=== PATIENT | female | born 1955 | race Hispanic/Latino ===

== ENCOUNTER 2017-12-03 14:37 | Outpatient (CLI) | payer OTHER ==
--- NOTE | 2017-12-03 15:28 | XRay Report ---
XRAY RIGHT KNEE 4 THREE VIEWS: November CLINICAL: Right knee pain. FINDINGS: Severe osteoarthritis of the medial joint with complete loss of the joint space along with large osteophytes. Widening of the lateral joint space with small lateral osteophytes. Large patellofemoral joint osteophytes. No joint effusion. No fracture or dislocation. Normal soft tissues. IMPRESSION: Severe osteoarthritis of the medial joint and the patellofemoral joint.
== END 2017-12-03 14:38 | disposition home or self-care (01) ==
LOC: SPVIMAG 14:37
PROVIDERS: ATTEND Orthopaedic Surgery Sports Medicine
DX: M17.11 Unilateral primary osteoarthritis, right knee (principal)

== ENCOUNTER 2018-04-09 06:30 | Day surgery (SDC) | payer OTHER ==
[2018-04-09] MEDS ORDERED: NACL 0.9% 1000 ML 1,000 ML ONE (06:57)
[2018-04-09] MEDS ORDERED: WATER FOR IRRIG STERILE ONE (07:09)
[2018-04-09] MEDS ORDERED: WATER FOR IRRIG STERILE IR ONE (07:09)
[2018-04-09] MEDS ORDERED: DIPRIVAN 10 MG/ML IV ONE ×2 (07:33)
[2018-04-09] MEDS ORDERED: XYLOCAINE 1% 20 mL ONE (07:34)
[2018-04-09] MEDS ORDERED: NACL 0.9% 1000 ML 1,000 ML IV SCH (09:00)
--- NOTE | 2018-04-09 09:31 | Short Stay Summary ---
Short Stay Documentation - Allergies and Medications Current Medications: Allergies oxycodone [From OxyContin] Adverse Reaction (Verified 04/09/18 06:59) Anaphylaxis Active Medications Sodium Chloride (Nacl 0.9% 1000 Ml) 1,000 mls @ 50 mls/hr IV DIRECT IVET - Brief post op/procedure progress note Date of procedure: 04/09/18 Pre-op diagnosis: 1. Diarrhea Post-op diagnosis: same (1. Colon polyp 2. Internal hemorrhoids 3. Diverticulosis 4. Normal ileocolic anastomosis) Procedure: Colonoscopy with cold biopsy polypectomy Anesthesia: MAC Findings: as above Surgeon: CARLINE BRANDON Estimated blood loss: none Pathology: list (1. Transverse colon polyp) Specimen disposition: to lab Condition: stable - Disposition Condition at discharge: Stable Disposition: DC-[id number] TO HOME OR SELFCARE Short Stay Discharge Plan Activity: no restrictions Weight Bearing Status: Full Weight Bearing Diet: regular, low salt Additional Instructions: Post Sedation D/C Instructions When you return home you may resume your regular diet unless otherwise directed. -Go directly home from the hospital and rest quietly. You may resume normal activities tomorrow. -Do NOT drive, return to work, operate any machinery or make any important personal or business decisions today. -Do NOT drink any alcohol or take nerve or sleeping drugs. They add to the effects of the medicine still present in your body. Follow up with: NOEMÍ PIERCE MD [Primary Care Provider] - 7 Days
--- NOTE | 2018-04-09 09:33 | Anesthesia Consultation ---
Anesthesia Consult and Med Hx Date of service: 04/09/18 - Airway Anesthetic Teeth Evaluation: Good ROM Head & Neck: Adequate Mental/Hyoid Distance: Adequate Mallampati Class: Class II Intubation Access Assessment: Probably Good - Pulmonary Exam CTA: Yes - Cardiac Exam Cardiac Exam: RRR - Pre-Operative Health Status ASA Pre-Surgery Classification: ASA3 Proposed Anesthetic Plan: MAC - Cardiovascular System Hx Cardia Arrhythmia: Yes (hx afib) - Endocrine Hx Non-Insulin Dependent Diabetes: Yes
--- NOTE | 2018-04-09 09:33 | Anesthesia Day of Surgery ---
Anesthesia Day of Surgery - Day of Surgery Patient Examined: Yes Patient H&P Reviewed: Yes Patient is NPO: Yes Beta Blockers: Yes
[2018-04-09 09:38] VITALS: BP 134/49
--- NOTE | 2018-04-09 09:49 | Post Anesthesia Evaluation ---
- Post Anesthesia Evaluation Patient Participated: Yes Airway Patent: Yes Stable Respiratory Function: Yes Nausea/Vomiting: No Temp > 96.8F: Yes Pain Manageable: Yes Adequeate Hydration: Yes Anesthesia Complications: No
== END 2018-04-09 06:31 | disposition home or self-care (01) ==
LOC: GIO 06:30
PROVIDERS: ATTEND Internal Medicine Gastroenterology
DX: D12.3 Benign neoplasm of transverse colon (principal); K57.30 Diverticulosis of large intestine without perforation or abscess without bleeding; K64.8 Other hemorrhoids; E11.9 Type 2 diabetes mellitus without complications; I48.91 Unspecified atrial fibrillation; Z88.5 Allergy status to narcotic agent
CPT/HCPCS: 45380; 82962; 88305; J2704; J7030

== ENCOUNTER 2021-08-07 19:40 | Inpatient (IN) | payer MEDICARE, OTHER ==
--- NOTE | 2021-08-08 01:22 | Emergency Department Report ---
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 Patient was evaluated by her primary care provider earlier today, who sent her to the emergency department for further diagnostic evaluation. Patient states her abdominal pain began along her left flank and is now diffusely located throughout her abdomen, occurring intermittently throughout the day and night. Patient is unsure if she has lost weight over the last 4 weeks. Patient's last colonoscopy was 3 years ago. Two polyps were removed. Patient has not been anticoagulated for her atrial fibrillation in several years. Denies fever, chills, nausea, vomiting, melena, rectal bleeding, urinary symptoms. Denies all other complaints at this time. - Related Data Allergies Allergy/AdvReac Type Severity Reaction Status Date / Time oxycodone [From OxyContin] AdvReac Anaphylaxis Verified 04/09/18 06:59 ED Review of Systems ROS: Stated complaint: DYHYDRATION Other details as noted in HPI Other: GENERAL: Positive for loss of appetite. ENT: Negative for ear pain, difficulty hearing, sore throat, nasal congestion, epistaxis. CARDIOVASCULAR: Negative for chest pain, palpitations, lower extremity swelling. PULMONARY: Negative for cough, dyspnea, wheezing, orthopnea, cyanosis. GASTROINTESTINAL: Positive for abdominal pain and diarrhea. MUSCULOSKELETAL: Negative for joint pain, joint swelling, myalgias, back pain, neck pain. NEUROLOGICAL: Negative for headache, seizure, syncope, paresthesias, weakness. INTEGUMENTARY: Negative for erythema, rash, diaphoresis, laceration, ecchymosis. HEMATOLOGICAL: Negative for hemoptysis, hematemesis, hematochezia, hematuria. PSYCHIATRIC: Negative for hallucinations, suicidal ideation, homicidal ideation, anxiety, depression. ED Physical Exam - General Limitations: Physical Limitation - Other Other exam information: General: Awake and alert. No acute distress. BMI > 40. Head: Atraumatic, normocephalic. Eyes: EOMI. Pupils are equal and round. Normal sclera and conjunctiva. ENT: Oral mucosa is moist. Normal pharyngeal exam. Neck: Supple. No lymphadenopathy. Pulmonary: No respiratory distress. Clear to auscultation bilaterally. Cardiac: Regular rate and rhythm. Pulses are palpable and equal bilaterally. No lower extremity cyanosis or edema. Skin: Warm and dry. No rashes. Abdomen: Soft, non-tender, non-protuberant. Patient reports diffuse abdominal discomfort without localized reproducible tenderness, guarding, rigidity, or rebound. Bowel sounds are normal. No organomegaly or masses noted. Back: Normal alignment. Left CVA tenderness. Extremities: Symmetrical. Full range of motion intact. Neurological: Alert and oriented, appropriately interactive, no focal deficits. Psych: Cooperative. Appropriate mood and affect. Speech is evenly metered. Thoughts are logically construed. ED Course Vital Signs 08/08/21 00:54 Temperature 97.9 F Pulse Rate 57 L Respiratory 18 Rate Blood Pressure 110/64 O2 Sat by Pulse 98 Oximetry ED Medical Decision Making - Lab Data Result diagrams: 08/08/21 01:28 08/08/21 01:28 - Medical Decision Making Differential diagnosis including but not limited to: diverticulitis, pancreatitis, hepatobiliary disease, bowel obstruction, bowel perforation, mesenteric ischemia, abdominal aortic aneurysm/dissection, malignancy Patient with history of multiple medical problems presents to the emergency department with complaints of progressively worsening abdominal pain and diarrhea for 1 month. Sent to emergency department by PCP from outpatient clinic today. Patient's pain began in the left flank and is now present diffusely throughout her abdomen. Labs significant for dehydration, transaminitis, and abnormal renal function. Patient states she has no known history of renal insufficiency. Given IV fluids. Initially, presentation was suspicious for mesenteric ischemia, given the patient's history of abdominal pain and loss of appetite in the setting of atrial fibrillation without anticoagulation. Imaging shows evidence of left pyelonephritis, left hydroureteronephrosis, decreased perfusion to the left kidney, and a 5 cm mass in the left kidney suspicious for renal cell carcinoma. Urinalysis shows leukocyte esterase with significant pyuria including WBC clumps. Given IV meropenem and IV vancomycin per current UpToDate guidelines. Urine culture is pending. Patient is not an appropriate candidate for outpatient management due to her underlying comorbidities in the setting of suspected renal mass with concomitant infectious process. Case discussed with Dr. Crisostomo, nib assembler, who agrees to evaluate patient on hospital admission. Case discussed with Dr. Parrish, urologist, who agrees to evaluate patient on admission. Case discussed with hospitalist, who agrees to admit. Patient expressed understanding and is agreeable to plan of care. Critical care attestation.: If time is entered above; I have spent that time in minutes in the direct care of this critically ill patient, excluding procedure time. ED Disposition Clinical Impression: Renal mass, Pyelonephritis of left kidney, Decreased renal function, Tra nsaminitis, Dehydration Disposition: ADMITTED INPATIENT Is pt being admited?: Yes Does the pt Need Aspirin: No Condition: Serious Instructions: Abdominal Pain (ED) Referrals: ALYCIA TOWNSEND PA [Primary Care Provider] - 3-5 Days Time of Disposition: 05:53
[2021-08-08 01:47] LABS: Basophils # (Auto) 0.1 K/mm3 (0.0-0.1); Basophils % (Auto) 0.5 % (0.0-1.8); Eosinophils # (Auto) 0.1 K/mm3 (0.0-0.4); Eosinophils % (Auto) 1.2 % (0.0-4.3); Hematocrit 34.2 % (30.3-42.9); Hemoglobin 11.5 gm/dl (10.1-14.3); Lymphocytes # (Auto) 1.3 K/mm3 (1.2-5.4); Lymphocytes % (Auto) 11.3 % (13.4-35.0); Mean Corpuscular HGB Conc 34 % (30-34); Mean Corpuscular Volume 88 fl (79-97); Monocytes # (Auto) 0.8 K/mm3 (0.0-0.8); Monocytes % (Auto) 7.3 % (0.0-7.3); Platelet Count 404 K/mm3 (140-440); Red Blood Count 3.91 M/mm3 (3.65-5.03); Red Cell Distribution Width 15.1 % (13.2-15.2)
[2021-08-08 01:58] LABS: INR 1.13 (0.87-1.13)
[2021-08-08 02:04] LABS: Albumin 3.4 g/dL (3.9-5); Calcium 8.9 mg/dL (8.4-10.2)
[2021-08-08] MEDS ORDERED: SODIUM CHLORIDE 0.9% 1000 ML 1,000 ML IV ONE (02:12)
[2021-08-08 02:49] LABS: Bacteria,Urine 3+ /HPF (Negative); Bilirubin,Urine NEG (Negative); Blood,Urine MOD (Negative); Color,Urine Amber (Yellow); Mucus,Urine FEW /HPF
[2021-08-08 02:50] LABS: WBC,Urine > 182.0 /HPF (0.0-6.0)
--- NOTE | 2021-08-08 05:35 | Cat Scan Report ---
CTA ABDOMEN AND PELVIS WITHOUT AND WITH IV CONTRAST INDICATION / CLINICAL INFORMATION: Pt complains of abd pain, diarrhea, hx afib, no AC -> Ischemia. TECHNIQUE: Axial CT images were obtained through the abdomen and pelvis before and after after injection of IV c ontrast. 3 plane MIP / 3D reconstructions were produced. All CT scans at this location are performed using CT dose reduction for ALARA by means of automated exposure control. COMPARISON: None available. FINDINGS: On noncontrast images there is inflammation surrounding the left kidney with mild left hydroureterone phrosis. No obstructing stone is seen. Right kidney appears normal. Mild atelectasis in the lower lyn gs. Celiac and SMA appear normal. Bilateral renal arteries appear normal with mild atherosclerotic ch trish. There is abnormal appearance of the left kidney was suggestive left renal mass. This masslike d ensity measures 5 cm. On noncontrast images this fills the ureter measures 22 abnormal postcontrast i mages 35. EVA appears normal. Postsurgical change in the bowel loops. No evidence for bowel obstruction. There may be some thickening of the distal sigmoid colon and rectum. Gallbladder appears normal. Liver is m ildly enlarged no focal inflammatory changes seen within the bowel loops. Advanced degenerative townsend es seen throughout spine IMPRESSION: 1. Abnormal appearance of left kidney with slightly decreased perfusion compared with the right. Ther e is also masslike appearance with possible 5 cm mass. Only mild enhancement of the mass is seen pardo alla findings are concerning for renal cell carcinoma. Mild inflammation surrounding the left kidney w ith mild left hydroureteronephrosis. No obstructing stone is seen. Correlation urinalysis to exclude underlying pyelonephritis as well. 2. SMA celiac and EVA are patent. . Postsurgical change in right colon. Mild thickening of the distal sigmoid colon rectum however no focal area of inflammatory change within the colon is seen. 3. Degenerative changes seen throughout spine. Signer Name: Kem Baker MD Signed: 08/08/2021 5:31 AM Workstation Name: [id number]
[2021-08-08] MEDS ORDERED: MEROPENEM/NS 1 GRAM/100 ML 1 GRAM/100 ML BAG IV ONE (05:42)
[2021-08-08] MEDS ORDERED: VANCOMYCIN 2,000 MG in SODIUM CHLORIDE 0.9% 500 ML 500 ML IV ONE (05:46)
[2021-08-08] MEDS ORDERED: SODIUM CHLORIDE 0.9% 1000 ML 1,000 ML ONE (07:01)
--- NOTE | 2021-08-08 07:38 | Consultation ---
History of Present Illness - Reason for Consult Consult date: 08/08/21 Requesting physician: CRYSTAL FORTE - History of Present Illness 65-year-old lady with a history of diabetes mellitus, atrial fibrillation on anticoagulation, diverticulosis and bowel resection for colonic mass. Patient was doing well until 4 weeks ago when she started developing abdominal pain with diarrhea with decreased appetite. Pain was initially in her left flank and then became diffuse. It is intermittent associated with occasional nausea but no vomiting. She had intermittent chills and rigors and one night woke up soaked in sweats. Her symptoms kept recurring and so patient came to the emergency room for evaluation. In the ER urinalysis showed protein 100 mg/dL, moderate blood with large leukocyte esterase, WBC 182 and bacteria 3+. CT showed left pyelonephritis with left hydroureteronephrosis with decreased perfusion to the left kidney and a 5 cm mass. Urology has been consulted to evaluate patient. I am consulted to assist managing the kidney injury. Patient still complains of the pain but she is feeling better. 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 Moved to [place] about 5 years ago after she retired). denies: smoking, alcohol abuse, prescription drug abuse, IV drug use Family history: CAD (Both parents of heart disease), other (2 sisters are a live and in good health) Medications and Allergies Allergies Allergy/AdvReac Type Severity Reaction Status Date / Time oxycodone [From OxyContin] Allergy Severe Anaphylaxis Verified 08/08/21 12:12 Home Medications Medication Instructions Recorded Confirmed Last Taken Type Atorvastatin [Lipitor] 80 mg PO QDAY 08/09/21 08/09/21 Unknown History Bupropion HCl [Wellbutrin XL] 300 mg PO QDAY 08/09/21 08/09/21 Unknown History Duloxetine HCl 60 mg PO QAM 08/09/21 08/09/21 Unknown History Metformin HCl [metFORMIN] 1,000 mg PO BID 08/09/21 08/09/21 Unknown History clonazePAM [Klonopin] 1 mg PO BID PRN 08/09/21 08/09/21 Unknown History dilTIAZem HCL [Tiadylt ER] 120 mg PO BID 08/09/21 08/09/21 Unknown History Active Meds: Active Medications Sodium Chloride (Sodium Chloride 0.9% 10 Ml Flush Syringe) 10 ml IV PRN PRN PRN Reason: LINE FLUSH Review of Systems All systems: negative (Constitutional: no fever or chills. Appetite isor weight lossO HEENT: Admits to sore th sinus drainage no hearing or vision impairment . Cardiovascular: No chest pain, shortness of breath, palpitations, lower extremity swelling or dizziness. Respiratory: No cough, sputum, shortness of breath, hemo) Gastrointestinal: other (See history of present illness), no hematemesis, no coffee ground emesis, no jaundice Genitourinary Female: flank pain, urgency, urge incontinence (Last week for couple of days) Musculoskeletal: other (Admits to joint pains and stiffness) Integumentary: no rash, no pruritis Neurological: gait dysfunction, no paralysis, no seizures, no change in speech, no confusion Psychiatric: anxiety, depression Endocrine: no cold intolerance, no heat intolerance Hematologic/Lymphatic: easy bruising Exam - Vital Signs Vital signs: Vital Signs Temp Pulse Resp BP Pulse Ox 97.9 F 57 L 18 110/64 98 08/08/21 00:54 08/08/21 00:54 08/08/21 00:54 08/08/21 00:54 08/08/21 00:54 - Physical Exam Narrative exam: Obese middle-aged female lying in bed in no acute distress HEENT: NCAT, pink oral mucous membrane Neck: Supple, no venous distention CVS: S1S2 RRR with no murmur, rub or gallop Chest: Clear to auscultation Abdomen: Protuberant, soft, nontender, no organomegaly, bowel sounds are present Extremities: No edema Genitourinary deferred Neuro: Awake, alert no focal deficits Results - Lab Results 08/09/21 05:06 08/09/21 05:06 Most recent lab results Calcium 8.9 mg/dL (8.4-10.2) 08/08/21 01:28 Magnesium 1.80 mg/dL (1.7-2.3) 08/08/21 01:28 Assessment and Plan - Patient Problems (1) Acute kidney injury Current Visit: Yes Status: Acute Plan to address problem: Acute kidney injury probably prerenal azotemia and left pyelonephritis with obstruction. Follow-up urine cultures. Continue volume repletion. Continue empiric antibiotics appropriately dosed to the degree of renal function. Urology has been consulted for relief of obstruction follow-up electrolytes and renal function. (2) Pyelonephritis of left kidney Current Visit: Yes Status: Acute Plan to address problem: Follow-up cultures. Continue empiric antibiotics. (3) Hydroureteronephrosis Current Visit: Yes Status: Acute Plan to address problem: Urology has been consulted to evaluate for possible cystoscopy and retrograde pyelogram (4) Renal mass Current Visit: Yes Status: Acute Plan to address problem: Urology evaluation (5) Diarrhea Current Visit: Yes Status: Acute Plan to address problem: Work-up and treatment by primary attending. Will need GI evaluation at some point given prior history (6) Type 2 diabetes mellitus Current Visit: Yes Status: Acute Plan to address problem: Blood sugar management by primary attending (7) Morbid obesity with BMI of 40.0-44.9, adult Current Visit: Yes Status: Acute Plan to address problem: Long-term efforts at weight loss as an outpatient
[2021-08-08] MEDS ORDERED: SODIUM CHLORIDE 0.9% 1000 ML 1,000 ML IV SCH (09:00)
--- NOTE | 2021-08-08 11:34 | History and Physical Report ---
History of Present Illness Date of examination: 08/08/21 Date of admission: 08/08/21 06:38 Chief complaint: #1 diarrhea #2 left flank pain History of present illness: 65-year-old female with a history of obesity, diabetes, atrial fibrillation, hyperlipidemia and major depression presents with a chief complaint of 1 chronic diarrhea that has progressively worsened over the past 4 weeks. Patient denies dark stool denies abdominal pain at this time. Patient states diarrhea has been common since she had a surgery in 2011 for a nonmalignant abdominal mass. Since that time she does suffer with diarrhea however now has progress until every time she eats she has a loose stool even including crackers. Patient also had additional complaint of left-sided flank pain which has been going on for approximately 3 days. Patient states she has chronic back pain which was similar to the pain that she was having therefore she was less concerned. After day 2 of back pain patient had arthralgias myalgias chills that did not respond to rest and Tylenol. Patient then went to see primary care physician who advised ER visit. Upon presentation to the ER patient had abdominal CT which showed pyelonephritis, hydronephrosis and a mass on the left kidney. Patient a lso found to have acute renal insufficiency as well. Patient admitted started on broad-spectrum antibiotics and reduction of hydronephrosis. Past History Past Medical History: atrial fib, arrhythmia, diabetes, hypertension, hyperlipidemia. denies: CAD, cancer, COPD, DVT, hypothyroidism, liver disease, migraines, PVD, pulmonary embolism, renal failure, seizures Past Surgical History: Other (Hip surgery colonoscopy approximately 3 years ago benign) Social history: , Lives alone Family history: no significant family history Medications and Allergies Allergies Allergy/AdvReac Type Severity Reaction Status Date / Time oxycodone [From OxyContin] AdvReac Anaphylaxis Verified 04/09/18 06:59 Active Meds: Active Medications Sodium Chloride (Nacl 0.9% 1000 Ml) 1,000 mls @ 75 mls/hr IV DIRECT IVET Sodium Chloride (Sodium Chloride 0.9% 10 Ml Flush Syringe) 10 ml IV PRN PRN PRN Reason: LINE FLUSH Review of Systems Constitutional: fever, chills, sweats, night sweats, anorexia, fatigue, weakness, malaise, poor appetite, other (Diarrhea as mentioned in HPI), no weight loss, no weight gain, no lethargy, no chronic headaches, no chronic pain Ears, nose, mouth and throat: no ear discharge, no decreased hearing, no nasal congestion, no nasal discharge, no dysphagia, no sore throat, no swelling in mouth, no post-nasal drip, no headache, no pain front of neck, no other Cardiovascular: no chest pain, no orthopnea, no edema, no syncope, no lightheadedness, no dyspnea on exertion, no paroxysmal nocturnal dyspnea, no high blood pressure, no leg edema, no decreased exercise tolerance Respiratory: no cough, no hemoptysis, no dyspnea on exertion, no respiratory infections, no home oxygen Gastrointestinal: nausea, diarrhea, loss of appetite, no vomiting, no constipation, no change in bowel habits, no hematemesis, no coffee ground emesis, no BRBPR, no melena, no hematochezia, no early satiety, no heartburn, no indigestion, no excessive gas, no jaundice, no dyspepsia/bloating Genitourinary Female: flank pain, no hematuria, no nocturia, no vaginal discharge, no vaginal odor, no abnormal vaginal bleeding, no vaginal dryness, no hot flashes, no prolapse symptoms, no kidney stones Musculoskeletal: low back pain, no neck stiffness, no neck pain, no shooting arm pain, no arm numbness/tingling, no shooting leg pain, no leg numbness/tingling, no redness of joints, no hot joints, no muscle weakness, no myalgias Neurological: no paralysis, no tingling, no syncope, no convulsions, no change in speech, no confusion, no sensory deficit, no double vision, no loss of vision, no spasticity, no other Psychiatric: anxiety, depression, no hypersomnia, no change in appetite, no change in libido, no suicidal ideation, no anxiety attacks Endocrine: other (Blood sugars have been well controlled. Last hemoglobin A1c was 6.3), no cold intolerance, no polydipsia, no nocturia, no excessive sweating, no deepening of the voice, no high blood sugars, no low blood sugars, no recent glucocorticoid use Hematologic/Lymphatic: no easy bleeding Allergic/Immunologic: no seasonal allergies Exam - Constitutional Vitals: Temp Pulse Resp BP Pulse Ox 97.9 F 57 L 18 110/64 98 08/08/21 00:54 08/08/21 00:54 08/08/21 00:54 08/08/21 00:54 08/08/21 00:54 General appearance: Present: no acute distress, well-nourished - EENT Eyes: Present: PERRL ENT: hearing intact, clear oral mucosa - Neck Neck: Present: supple, normal ROM - Respiratory Respiratory effort: normal Respiratory: bilateral: CTA - Cardiovascular Heart Sounds: Present: S1 & S2. Absent: rub, click - Extremities Extremities: pulses symmetrical, Full ROM Extremity abnormal: edema, other (+1 pitting edema bilaterally) Peripheral Pulses: within normal limits - Abdominal General gastrointestinal: Present: soft, non-tender, non-distended, normal bowel sounds, other (No hernia no masses appreciated does have some flank tenderness. Left side). Absent: hypoactive bowel sounds, absent bowel sounds Female genitourinary: Present: normal - Integumentary Integumentary: Present: clear, warm, dry - Musculoskeletal Musculoskeletal: gait normal, strength equal bilaterally - Psychiatric Psychiatric: appropriate mood/affect, intact judgment & insight - Neurologic Neurologic: CNII-XII intact, moves all extremities Results - Labs CBC & Chem 7: 08/08/21 01:28 08/08/21 01:28 Labs: Laboratory Last Values WBC 11.7 K/mm3 (4.5-11.0) H 08/08/21 01:28 RBC 3.91 M/mm3 (3.65-5.03) 08/08/21 01:28 Hgb 11.5 gm/dl (10.1-14.3) 08/08/21 01:28 Hct 34.2 % (30.3-42.9) 08/08/21 01:28 MCV 88 fl (79-97) 08/08/21 01:28 MCH 30 pg (28-32) 08/08/21 01:28 MCHC 34 % (30-34) 08/08/21 01:28 RDW 15.1 % (13.2-15.2) 08/08/21 01:28 Plt Count 404 K/mm3 (140-440) 08/08/21 01:28 Lymph % (Auto) 11.3 % (13.4-35.0) L 08/08/21 01:28 [place] % (Auto) 7.3 % (0.0-7.3) 08/08/21 01:28 Eos % (Auto) 1.2 % (0.0-4.3) 08/08/21 01:28 Baso % (Auto) 0.5 % (0.0-1.8) 08/08/21 01:28 Lymph # (Auto) 1.3 K/mm3 (1.2-5.4) 08/08/21 01:28 [place] # (Auto) 0.8 K/mm3 (0.0-0.8) 08/08/21 01:28 Eos # (Auto) 0.1 K/mm3 (0.0-0.4) 08/08/21 01:28 Baso # (Auto) 0.1 K/mm3 (0.0-0.1) 08/08/21 01:28 Seg Neutrophils % 79.7 % (40.0-70.0) H 08/08/21 01:28 Seg Neutrophils # 9.3 K/mm3 (1.8-7.7) H 08/08/21 01:28 PT 15.0 Sec. (12.2-14.9) H 08/08/21 01:28 INR 1.13 (0.87-1.13) 08/08/21 01:28 APTT 26.0 Sec. (24.2-36.6) 08/08/21 01:28 Sodium 134 mmol/L (137-145) L 08/08/21 01:28 Potassium 4.3 mmol/L (3.6-5.0) 08/08/21 01:28 Chloride 96.6 mmol/L (98-107) L 08/08/21 01:28 Carbon Dioxide 24 mmol/L (22-30) 08/08/21 01:28 Anion Gap 18 mmol/L 08/08/21 01:28 BUN 37 mg/dL (7-17) H 08/08/21 01:28 Creatinine 1.3 mg/dL (0.6-1.2) H 08/08/21 01:28 Estimated GFR 41 ml/min 08/08/21 01:28 BUN/Creatinine Ratio 28 % 08/08/21 01:28 Glucose 132 mg/dL (65-100) H 08/08/21 01:28 Lactic Acid 0.90 mmol/L (0.7-2.0) 08/08/21 07:07 Calcium 8.9 mg/dL (8.4-10.2) 08/08/21 01:28 Magnesium 1.80 mg/dL (1.7-2.3) 08/08/21 01:28 Total Bilirubin 0.60 mg/dL (0.1-1.2) 08/08/21 01:28 AST 58 units/L (5-40) H 08/08/21 01:28 ALT 64 units/L (7-56) H 08/08/21 01:28 Alkaline Phosphatase 174 units/L (35-129) H 08/08/21 01:28 Total Protein 6.6 g/dL (6.3-8.2) 08/08/21 01:28 Albumin 3.4 g/dL (3.9-5) L 08/08/21 01:28 Albumin/Globulin Ratio 1.1 % 08/08/21 01:28 Lipase 30 units/L (13-60) 08/08/21 01:28 Urine Color [place] (Yellow) 08/08/21 Unknown Urine Turbidity Cloudy (Clear) 08/08/21 Unknown Urine pH 5.0 (5.0-7.0) 08/08/21 Unknown Ur Specific [place] 1.016 (1.003-1.030) 08/08/21 Unknown Urine Protein 100 mg/dl mg/dL (Negative) 08/08/21 Unknown Urine Glucose (UA) Neg mg/dL (Negative) 08/08/21 Unknown Urine Ketones Neg mg/dL (Negative) 08/08/21 Unknown Urine Blood Mod (Negative) 08/08/21 Unknown Urine Nitrite Neg (Negative) 08/08/21 Unknown Urine Bilirubin Neg (Negative) 08/08/21 Unknown Urine Urobilinogen 2.0 mg/dL (<2.0) 08/08/21 Unknown Ur Leukocyte Esterase Lg (Negative) 08/08/21 Unknown Urine WBC (Auto) > 182.0 /HPF (0.0-6.0) H 08/08/21 Unknown Urine RBC (Auto) 2.0 /HPF (0.0-6.0) 08/08/21 Unknown U Epithel Cells (Auto) 7.0 /HPF (0-13.0) 08/08/21 Unknown Urine Bacteria (Auto) 3+ /HPF (Negative) 08/08/21 Unknown Urine WBC Clumps 3+ /HPF 08/08/21 Unknown Urine Mucus Few /HPF 08/08/21 Unknown - Imaging and Cardiology Chest x-ray: report reviewed, image reviewed CT scan - abdomen: report reviewed, image reviewed Assessment and Plan Advance Directives: Yes VTE prophylaxis?: Chemical Plan of care discussed with patient/family: Yes - Patient Problems (1) Acute kidney injury Current Visit: Yes Status: Acute Plan to address problem: Multifactorial secondary to prerenal azotemia with volume loss diarrhea as well as pyelonephritis. We will start aggressive IV hydration. (2) Pyelonephritis of left kidney Current Visit: Yes Status: Acute Plan to address problem: Complicated pyelonephritis. With sepsis patient has 5 mm renal mass as well as some hydronephrosis. Empiric antibiotics meropenem and vancomycin Follow blood culture data./Urine culture data IV volume hydration Supportive care with pain control Urology (3) Renal mass Current Visit: Yes Status: Acute Plan to address problem: Renal mass 5 mm suggestive of renal cell carcinoma. Urology consultation (4) Transaminitis Current Visit: Yes Status: Acute Plan to address problem: Follow transaminases most likely secondary to decreased perfusion as well. May require follow-up abdominal CT at some point. (5) Atrial fibrillation Current Visit: Yes Status: Acute Plan to address problem: Atrial fibrillation. Patient was on 2 beta-blockers. Being treated by [facility]. Patient does not know doses of beta-efrain. She is also taking Cardizem which includes 3 AV jesica blocking agents. Patient's heart rate at this point is 54. We will only add Cardizem at this time. Will obtain cardiology consult for further recommendations. Patient also has not been anticoagulated for quite some time. Patient states she is gone over this with cardiology multiple times about not being anticoagulated and they this is the best in her interest. (6) Diabetes Current Visit: Yes Status: Acute Plan to address problem: Patient on Metformin Accu-Cheks stable today. Will cover with just sliding scale insulin only at this time. Especially with acute kidney injury. (7) Hyperlipidemia LDL goal <100 Current Visit: Yes Status: Acute Plan to address problem: Goal LDL less than 100. Restart statin. (8) Morbid obesity with BMI of 40.0-44.9, adult Current Visit: Yes Status: Acute Plan to address problem: Encourage decrease carbohydrate. Increase exercise if possible. (9) Chronic diarrhea Current Visit: Yes Status: Acute Plan to address problem: Been going on for several years just worse at this point. We will treat with as needed Lomotil.
[2021-08-08] MEDS ORDERED: MORPHINE 2 MG/1 ML INJ IV PRN (11:47)
[2021-08-08] MEDS ORDERED: DEXTROSE 50% IN WATER (25GM) 50 ML SYRINGE IV PRN (11:47)
[2021-08-08] MEDS ORDERED: oxyCODONE /ACETAMINOPHEN 5-325MG TAB PO PRN (11:47)
[2021-08-08] MEDS ORDERED: ACETAMINOPHEN 325 MG TAB PO PRN (11:47)
[2021-08-08] MEDS ORDERED: ONDANSETRON 4 MG/2 ML INJ IV PRN (11:47)
[2021-08-08] MEDS ORDERED: clonazePAM 0.5 MG TAB PO PRN (12:00)
--- NOTE | 2021-08-08 12:33 | Event Note ---
Date: 08/08/21 er room 8 ( pt unavailable---I will come back)/ chart reviewed 65-year-old female with a history of obesity, diabetes, atrial fibrillation, hyperlipidemia and major depression presents with a chief complaint of 1 chronic diarrhea that has progressively worsened over the past 4 weeks. Patient denies dark stool denies abdominal pain at this time. Patient states diarrhea has been common since she had a surgery in 2011 for a nonmalignant abdominal mass. Since that time she does suffer with diarrhea however now has progress until every time she eats she has a loose stool even including crackers. Patient also had additional complaint of left-sided flank pain which has been going on for approximately 3 days. Patient states she has chronic back pain which was similar to the pain that she was having therefore she was less concerned. After day 2 of back pain patient had arthralgias myalgias chills that did not respond to rest and Tylenol. Patient then went to see primary care physician who advised ER visit. Upon presentation to the ER patient had abdominal CT which showed pyelonephritis, hydronephrosis and a 5cm mass on the left kidney. Patient also found to have acute renal insufficiency as well. Patient admitted started on broad-spectrum antibiotics and reduction of hydronephrosis. ( DDX - infected cyst, acquired cyst, tumor) will need repeat CT as outpt once infection has resolved
[2021-08-08] MEDS: dilTIAZem 30 MG TAB PO SCH ×2 (13:17→21:43)
[2021-08-08] MEDS: ENOXAPARIN 30 MG/0.3 ML INJ SUB-Q SCH (13:22)
[2021-08-08] MEDS: buPROPion SR 100 MG TAB PO SCH ×2 (13:23→21:42)
[2021-08-08] MEDS: FAMOTIDINE 20 MG/2 ML INJ IV SCH ×2 (13:23→21:42)
--- NOTE | 2021-08-08 16:32 | Consultation ---
History of Present Illness Consult date: 08/08/21 Requesting physician: BERTIN TAMAYO Consult reason: atrial fibrillation, other (3 av jesica agents) History of present illness: Patient is a 65 y/o female who follows with Dr. Mott of our practice. She has a pmhx of PAF, HTN, DM, and obesity who presented to [facility] with a complaint of progressively worsening diarrhea x 4 weeks. The patient reports she has chronic diarrhea but that for the last 4 weeks it has worsened and is associated with a decrease in appetite, fatigue, chills and general malaise. She also reports a left sided pain in her back which she attributed to chronic back pain. She reports that her symptoms had no exacerbating or relieving factors. She decided to come to the hospital after speaking with her PCP about her symptoms and reporting that they have worsened in the last [address] abdominal revealed pyelonephritis, hydronephrosis, and a left kidney mass. Cardiology has been consulted for the patients Afib. Past History Past Medical History: atrial fib, arrhythmia, diabetes, hypertension, hyperlipidemia. denies: CAD, cancer, COPD, DVT, hypothyroidism, liver disease, migraines, PVD, pulmonary embolism, renal failure, seizures Past Surgical History: Other (Hip surgery colonoscopy approximately 3 years ago benign) Social history: , Lives alone Family history: no significant family history Medications and Allergies Allergies Allergy/AdvReac Type Severity Reaction Status Date / Time oxycodone [From OxyContin] Allergy Severe Anaphylaxis Verified 08/08/21 12:12 Active Meds: Active Medications Acetaminophen (Acetaminophen 325 Mg Tab) 650 mg PO Q4H PRN PRN Reason: Pain MILD(1-3)/Fever >100.5/[place] Atenolol (Atenolol 50 Mg Tab) 50 mg PO BID IVET Atorvastatin Calcium (Atorvastatin 20 Mg Tab) 20 mg PO QHS [facility] Bupropion HCl (Bupropion Sr 100 Mg Tab) 100 mg PO BID [facility] Last Admin: 08/08/21 13:23 Dose: 100 mg Documented by: Clonazepam (Clonazepam 0.5 Mg Tab) 0.5 mg PO Q8H PRN PRN Reason: Anxiety Dextrose (Dextrose 50% In Water (25gm) 50 Ml Syringe) 50 ml IV Q30MIN PRN; Protocol PRN Reason: Hypoglycemia Diltiazem HCl (Diltiazem 30 Mg Tab) 30 mg PO Q6HR [facility] Stop: 08/08/21 18:00 Last Admin: 08/08/21 13:17 Dose: 30 mg Documented by: Diltiazem HCl (Diltiazem 30 Mg Tab) 120 mg PO BID [facility] Duloxetine HCl (Duloxetine 20 Mg Cap) 20 mg PO QDAY [facility] Enoxaparin Sodium (Enoxaparin 30 Mg/0.3 Ml Inj) 30 mg SUB-Q QDAY [facility] Last Admin: 08/08/21 13:22 Dose: 30 mg Documented by: Famotidine (Famotidine 20 Mg/2 Ml Inj) 10 mg IV BID [facility] Last Admin: 08/08/21 13:23 Dose: 10 mg Documented by: Sodium Chloride (Nacl 0.9% 1000 Ml) 1,000 mls @ 75 mls/hr IV DIRECT [facility] Insulin Human Lispro (Insulin Lispro 100 Unit/Ml) 0 unit SUB-Q ACHS [facility]; Pr otocol Lisinopril (Lisinopril 5 Mg Tab) 5 mg PO QDAY [facility] Morphine Sulfate (Morphine 2 Mg/1 Ml Inj) 2 mg IV Q4H PRN PRN Reason: Pain, Moderate (4-6) Ondansetron HCl (Ondansetron 4 Mg/2 Ml Inj) 4 mg IV Q8H PRN PRN Reason: Nausea And Vomiting Oxycodone/Acetaminophen (Oxycodone /Acetaminophen 5-325mg Tab) 1 tab PO Q6H PRN PRN Reason: Pain, Moderate (4-6) Sodium Chloride (Sodium Chloride 0.9% 10 Ml Flush Syringe) 10 ml IV PRN PRN PRN Reason: LINE FLUSH Sodium Chloride (Sodium Chloride 0.9% 10 Ml Flush Syringe) 10 ml IV BID [facility] Last Admin: 08/08/21 13:23 Dose: 10 ml Documented by: Sotalol HCl (Sotalol 80 Mg Tab) 180 mg PO Q12HR [facility] Review of Systems All systems: negative Constitutional: fever, chills, fatigue, poor appetite, no weight loss, no weight gain Ears, nose, mouth and throat: no ear discharge, no tinnitis, no decreased hearing, no nose pain Cardiovascular: no orthopnea, no palpitations Respiratory: no cough, no cough with sputum, no excessive sputum, no shortness of breath, no dyspnea on exertion Gastrointestinal: nausea, vomiting, diarrhea Genitourinary Female: flank pain Musculoskeletal: low back pain Integumentary: no rash, no pruritis, no redness, no sores Neurological: no transient paralysis, no paralysis, no weakness, no parathesias Psychiatric: no anxiety, no memory loss Endocrine: no cold intolerance, no heat intolerance Hematologic/Lymphatic: no easy bruising, no easy bleeding Physical Examination Last Vital Signs Temp 97.9 F 08/08/21 00:54 Pulse 46 L 08/08/21 15:00 Resp 28 H 08/08/21 15:00 BP 135/58 08/08/21 15:00 Pulse Ox 93 08/08/21 15:00 General appearance: no acute distress HEENT: Positive: PERRL Neck: Positive: trachea midline Cardiac: Positive: irregularly irregular Lungs: Positive: Normal Breath Sounds Neuro: Positive: Grossly Intact Abdomen: Positive: Soft, Active Bowel Sounds Skin: Negative: Rash, Suspicious Lesions, Ulceration Extremities: Present: upper extr. pulses, lower extr. pulses. Absent: edema Results 08/08/21 01:28 08/08/21 01:28 Cardiac Enzymes 08/08/21 Range/Units 01:28 AST 58 H (5-40) units/L Coagulation 08/08/21 Range/Units 01:28 PT 15.0 H (12.2-14.9) Sec. INR 1.13 (0.87-1.13) APTT 26.0 (24.2-36.6) Sec. CBC 08/08/21 Range/Units 01:28 WBC 11.7 H (4.5-11.0) K/mm3 RBC 3.91 (3.65-5.03) M/mm3 Hgb 11.5 (10.1-14.3) gm/dl Hct 34.2 (30.3-42.9) % Plt Count 404 (140-440) K/mm3 Lymph # (Auto) 1.3 (1.2-5.4) K/mm3 [place] # (Auto) 0.8 (0.0-0.8) K/mm3 Eos # (Auto) 0.1 (0.0-0.4) K/mm3 Baso # (Auto) 0.1 (0.0-0.1) K/mm3 Comprehensive Metabolic Panel 08/08/21 Range/Units 01:28 Sodium 134 L (137-145) mmol/L Potassium 4.3 (3.6-5.0) mmol/L Chloride 96.6 L (98-107) mmol/L Carbon Dioxide 24 (22-30) mmol/L BUN 37 H (7-17) mg/dL Creatinine 1.3 H (0.6-1.2) mg/dL Glucose 132 H (65-100) mg/dL Calcium 8.9 (8.4-10.2) mg/dL AST 58 H (5-40) units/L ALT 64 H (7-56) units/L Alkaline Phosphatase 174 H (35-129) units/L Total Protein 6.6 (6.3-8.2) g/dL Albumin 3.4 L (3.9-5) g/dL - Imaging and Cardiology Echo: report reviewed EKG: pending Assessment and Plan Afib (rate controlled) * Patient has known history of AFib. EKG pending * Patient home medications are sotalol 180mg PO BID, atenolol 50mg PO BID, and Diltiazem 120mg PO BID. She has been on these medications for many years. Will resume meds * Previous EKGs and documentation show patient HR trend mid 50s-60s. Patient has no cardiac complaints * Patient is not on anticoagulation as an outpatient. Will continue to hold anti coagulation * Echo 05/16/2020- The estimated LV ejection fraction is normal at 55-60%. LV chamber size is normal. There is a sigmoid septum measuring 1.6 cm. Normal left atrial pressure and diastolic function. There is normal right ventricular size, wall dimension, and systolic function. The LA volume is mildly increased. Right Atrium chamber is mildly dilated. The ascending aorta is mildly dilated Pyelonephritis Hydroneprhosis Kidney Mass * Nephrology Consulted * Urology Consulted Resume home meds. EKG pending Patient seen in conjunction with Dr. Cool who agrees with this plan of care. Will continue to follow - Patient Problems (1) Acute kidney injury Current Visit: Yes Status: Acute (2) Atrial fibrillation Current Visit: Yes Status: Acute (3) Chronic diarrhea Current Visit: Yes Status: Acute (4) Hyperlipidemia LDL goal <100 Current Visit: Yes Status: Acute (5) Morbid obesity with BMI of 40.0-44.9, adult Current Visit: Yes Status: Acute (6) Pyelonephritis of left kidney Current Visit: Yes Status: Acute (7) Renal mass Current Visit: Yes Status: Acute
--- NOTE | 2021-08-08 17:46 | Consultation ---
History of Present Illness - Reason for Consult Consult date: 08/08/21 - History of Present Illness er room 8 chart reviewed 65-year-old female with a history of obesity, diabetes, atrial fibrillation, hyperlipidemia and major depression presents with a chief complaint of 1 chronic diarrhea that has progressively worsened over the past 4 weeks. Patient denies dark stool denies abdominal pain at this time. Patient states diarrhea has been common since she had a surgery in 2011 for a nonmalignant abdominal mass. Since that time she does suffer with diarrhea however now has progress until every time she eats she has a loose stool even including crackers. Patient also had additional complaint of left-sided flank pain which has been going on for approximately 3 days. Patient states she has chronic back pain which was similar to the pain that she was having therefore she was less concerned. After day 2 of back pain patient had arthralgias myalgias chills that did not respond to rest and Tylenol. Patient then went to see primary care physician who advised ER visit. Upon presentation to the ER patient had abdominal CT which showed pyelonephritis, hydronephrosis and a 5cm mass on the left kidney. Patient also found to have acute renal insufficiency as well. Patient admitted started on broad-spectrum antibiotics and reduction of hydronephrosis. abd soft A/P UTI left renal mass ( DDX - infected cyst, acquired cyst, tumor) CARDS note reviewed will need repeat CT as outpt once infection has resolved my card given & written info office appt in 1-2 wks Past History Past Medical History: atrial fib, arrhythmia, diabetes, hypertension, hyperlipidemia. denies: CAD, cancer, COPD, DVT, hypothyroidism, liver disease, migraines, PVD, pulmonary embolism, renal failure, seizures Past Surgical History: Other (Hip surgery colonoscopy approximately 3 years ago benign) Social history: , Lives alone Family history: no significant family history Medications and Allergies Allergies Allergy/AdvReac Type Severity Reaction Status Date / Time oxycodone [From OxyContin] Allergy Severe Anaphylaxis Verified 08/08/21 12:12 Active Meds: Active Medications Acetaminophen (Acetaminophen 325 Mg Tab) 650 mg PO Q4H PRN PRN Reason: Pain MILD(1-3)/Fever >100.5/BENSON Atenolol (Atenolol 50 Mg Tab) 50 mg PO BID IVET Atorvastatin Calcium (Atorvastatin 20 Mg Tab) 20 mg PO QHS IVET Bupropion HCl (Bupropion Sr 100 Mg Tab) 100 mg PO BID [facility] Last Admin: 08/08/21 13:23 Dose: 100 mg Documented by: Clonazepam (Clonazepam 0.5 Mg Tab) 0.5 mg PO Q8H PRN PRN Reason: Anxiety Dextrose (Dextrose 50% In Water (25gm) 50 Ml Syringe) 50 ml IV Q30MIN PRN; Protocol PRN Reason: Hypoglycemia Diltiazem HCl (Diltiazem 30 Mg Tab) 30 mg PO Q6HR [facility] Stop: 08/08/21 18:00 Last Admin: 08/08/21 13:17 Dose: 30 mg Documented by: Diltiazem HCl (Diltiazem 60 Mg Tab) 120 mg PO BID [facility] Duloxetine HCl (Duloxetine 20 Mg Cap) 20 mg PO QDAY [facility] Enoxaparin Sodium (Enoxaparin 30 Mg/0.3 Ml Inj) 30 mg SUB-Q QDAY [facility] Last Admin: 08/08/21 13:22 Dose: 30 mg Documented by: Famotidine (Famotidine 20 Mg/2 Ml Inj) 10 mg IV BID [facility] Last Admin: 08/08/21 13:23 Dose: 10 mg Documented by: Sodium Chloride (Nacl 0.9% 1000 Ml) 1,000 mls @ 75 mls/hr IV DIRECT [facility] Insulin Human Lispro (Insulin Lispro 100 Unit/Ml) 0 unit SUB-Q ACHS [facility]; Protocol Lisinopril (Lisinopril 5 Mg Tab) 5 mg PO QDAY [facility] Morphine Sulfate (Morphine 2 Mg/1 Ml Inj) 2 mg IV Q4H PRN PRN Reason: Pain, Moderate (4-6) Ondansetron HCl (Ondansetron 4 Mg/2 Ml Inj) 4 mg IV Q8H PRN PRN Reason: Nausea And Vomiting Oxycodone/Acetaminophen (Oxycodone /Acetaminophen 5-325mg Tab) 1 tab PO Q6H PRN PRN Reason: Pain, Moderate (4-6) Sodium Chloride (Sodium Chloride 0.9% 10 Ml Flush Syringe) 10 ml IV PRN PRN PRN Reason: LINE FLUSH Sodium Chloride (Sodium Chloride 0.9% 10 Ml Flush Syringe) 10 ml IV BID [facility] Last Admin: 08/08/21 13:23 Dose: 10 ml Documented by: Sotalol HCl (Sotalol 80 Mg Tab) 180 mg PO Q12HR IVET Last Admin: 08/08/21 16:43 Dose: Not Given Documented by: Exam - Constitutional Vitals: Temp Pulse Resp BP Pulse Ox 97.9 F 46 L 25 H 137/69 96 08/08/21 00:54 08/08/21 16:00 08/08/21 16:00 08/08/21 16:00 08/08/21 16:00 Results - Labs CBC & Chem 7: 08/08/21 01:28 08/08/21 01:28 Labs: Abnormal lab results 08/08/21 08/08/21 08/08/21 Range/Units 01:28 01:28 01:28 WBC 11.7 H (4.5-11.0) K/mm3 Lymph % (Auto) 11.3 L (13.4-35.0) % Seg Neutrophils % 79.7 H (40.0-70.0) % Seg Neutrophils # 9.3 H (1.8-7.7) K/mm3 PT 15.0 H (12.2-14.9) Sec. Sodium 134 L (137-145) mmol/L Chloride 96.6 L (98-107) mmol/L BUN 37 H (7-17) mg/dL Creatinine 1.3 H (0.6-1.2) mg/dL Glucose 132 H (65-100) mg/dL POC Glucose (70-105) mg/dL AST 58 H (5-40) units/L ALT 64 H (7-56) units/L Alkaline Phosphatase 174 H (35-129) units/L Albumin 3.4 L (3.9-5) g/dL Urine WBC (Auto) (0.0-6.0) /HPF 08/08/21 08/08/21 Range/Units 16:56 Unknown WBC (4.5-11.0) K/mm3 Lymph % (Auto) (13.4-35.0) % Seg Neutrophils % (40.0-70.0) % Seg Neutrophils # (1.8-7.7) K/mm3 PT (12.2-14.9) Sec. Sodium (137-145) mmol/L Chloride (98-107) mmol/L BUN (7-17) mg/dL Creatinine (0.6-1.2) mg/dL Glucose (65-100) mg/dL POC Glucose 144 H (70-105) mg/dL AST (5-40) units/L ALT (7-56) units/L Alkaline Phosphatase (35-129) units/L Albumin (3.9-5) g/dL Urine WBC (Auto) > 182.0 H (0.0-6.0) /HPF
[2021-08-08] MEDS ORDERED: DIPHENOXYLATE/ATROPINE TAB PO PRN (17:57)
[2021-08-08] MEDS: INSULIN LISPRO 100 UNIT/ML SUB-Q SCH ×2 (21:43→22:02)
[2021-08-08] MEDS: atenoloL 50 MG TAB PO SCH (22:01)
[2021-08-09 03:39] LABS: Creatinine,Urine 118.2 mg/dL (0.1-20.0)
[2021-08-09 06:19] LABS: Basophils % (Auto) 0.4 % (0.0-1.8); Eosinophils # (Auto) 0.1 K/mm3 (0.0-0.4); Eosinophils % (Auto) 0.9 % (0.0-4.3); Hematocrit 31.8 % (30.3-42.9); Hemoglobin 10.5 gm/dl (10.1-14.3); Lymphocytes # (Auto) 1.3 K/mm3 (1.2-5.4); Lymphocytes % (Auto) 11.9 % (13.4-35.0); Mean Corpuscular HGB Conc 33 % (30-34); Mean Corpuscular Volume 88 fl (79-97); Monocytes # (Auto) 0.8 K/mm3 (0.0-0.8); Monocytes % (Auto) 7.2 % (0.0-7.3); Platelet Count 321 K/mm3 (140-440); Red Blood Count 3.62 M/mm3 (3.65-5.03); Red Cell Distribution Width 15.3 % (13.2-15.2)
[2021-08-09 06:30] LABS: Albumin 2.9 g/dL (3.9-5); Calcium 9.2 mg/dL (8.4-10.2)
[2021-08-09] MEDS: INSULIN LISPRO 100 UNIT/ML SUB-Q SCH ×4 (08:35→22:19)
--- NOTE | 2021-08-09 08:46 | Progress Note ---
Assessment and Plan - Patient Problems (1) Acute kidney injury Current Visit: Yes Status: Acute (2) Pyelonephritis of left kidney Current Visit: Yes Status: Acute (3) Renal mass Current Visit: Yes Status: Acute (4) Transaminitis Current Visit: Yes Status: Acute (5) Atrial fibrillation Current Visit: Yes Status: Acute (6) Diabetes Current Visit: Yes Status: Acute (7) Hyperlipidemia LDL goal <100 Current Visit: Yes Status: Acute (8) Morbid obesity with BMI of 40.0-44.9, adult Current Visit: Yes Status: Acute (9) Chronic diarrhea Current Visit: Yes Status: Acute Subjective Date of service: 08/09/21 Principal diagnosis: 1. Pyelonephritis #2 acute kidney injury #3 atrial fibrillation Objective - Constitutional Vitals: Vital Signs - 12hr 08/08/21 08/08/21 08/08/21 20:50 21:00 21:10 Temperature Pulse Rate 53 L 53 L 53 L Respiratory 26 H 21 27 H Rate Blood Pressure 133/52 122/63 122/63 O2 Sat by Pulse 95 93 95 Oximetry 08/08/21 08/08/21 08/08/21 21:20 21:30 21:40 Temperature Pulse Rate 56 L 57 L 55 L Respiratory 10 L 13 16 Rate Blood Pressure 122/63 158/83 158/83 O2 Sat by Pulse 95 90 96 Oximetry 08/08/21 08/08/21 08/08/21 21:43 21:50 22:00 Temperature Pulse Rate 56 L 56 L 54 L Respiratory 15 8 L Rate Blood Pressure 122/63 158/83 138/68 O2 Sat by Pulse 96 98 Oximetry 08/08/21 08/08/21 08/08/21 22:01 22:10 22:20 Temperature Pulse Rate 56 L 55 L 55 L Respiratory 31 H 17 Rate Blood Pressure 122/63 138/68 158/83 O2 Sat by Pulse 94 96 Oximetry 08/08/21 08/08/21 08/08/21 22:29 22:30 22:40 Temperature Pulse Rate 51 L 55 L Respiratory 31 H 29 H Rate Blood Pressure 141/69 141/69 O2 Sat by Pulse 94 98 96 Oximetry 08/08/21 08/08/21 08/08/21 22:50 23:00 23:10 Temperature Pulse Rate 58 L 56 L 54 L Respiratory 28 H 29 H 30 H Rate Blood Pressure 141/69 147/67 147/67 O2 Sat by Pulse 98 95 95 Oximetry 08/08/21 08/08/21 08/08/21 23:20 23:30 23:40 Temperature Pulse Rate 55 L 61 65 Respiratory 21 13 12 Rate Blood Pressure 147/67 159/81 159/81 O2 Sat by Pulse 96 96 95 Oximetry 08/08/21 08/09/21 08/09/21 23:50 00:00 00:10 Temperature Pulse Rate 60 57 L Respiratory 14 15 21 Rate Blood Pressure 159/81 136/117 136/117 O2 Sat by Pulse 96 96 94 Oximetry 08/09/21 08/09/21 08/09/21 00:20 00:30 00:40 Temperature Pulse Rate 55 L 53 L 53 L Respiratory 30 H 28 H 27 H Rate Blood Pressure 136/117 136/117 136/117 O2 Sat by Pulse 95 94 95 Oximetry 08/09/21 08/09/21 08/09/21 00:50 01:00 01:10 Temperature Pulse Rate 53 L 53 L 52 L Respiratory 29 H 27 H 28 H Rate Blood Pressure 136/117 136/117 136/117 O2 Sat by Pulse 94 94 94 Oximetry 08/09/21 08/09/21 08/09/21 01:20 01:30 01:40 Temperature Pulse Rate 51 L 52 L 52 L Respiratory 27 H 28 H 29 H Rate Blood Pressure 136/117 197/71 197/71 O2 Sat by Pulse 94 92 93 Oximetry 08/09/21 08/09/21 08/09/21 01:50 02:00 02:10 Temperature Pulse Rate 51 L 55 L Respiratory 22 14 16 Rate Blood Pressure 197/71 217/58 217/58 O2 Sat by Pulse 93 97 96 Oximetry 08/09/21 08/09/21 08/09/21 02:20 02:24 02:30 Temperature Pulse Rate 54 L 54 L Respiratory 20 16 27 H Rate Blood Pressure 217/58 140/67 O2 Sat by Pulse 97 95 96 Oximetry 08/09/21 08/09/21 08/09/21 02:40 02:50 03:00 Temperature Pulse Rate 53 L 55 L 101 H Respiratory 19 25 H 14 Rate Blood Pressure 140/67 140/67 117/73 O2 Sat by Pulse 91 96 95 Oximetry 08/09/21 04:58 Temperature 97.6 F Pulse Rate 53 L Respiratory 20 Rate Blood Pressure 126/49 O2 Sat by Pulse 97 Oximetry - Labs CBC & Chem 7: 08/09/21 05:06 08/09/21 05:06 Labs: Abnormal lab results 08/08/21 08/08/21 08/09/21 Range/Units 16:56 22:00 03:01 WBC (4.5-11.0) K/mm3 RBC (3.65-5.03) M/mm3 RDW (13.2-15.2) % Lymph % (Auto) (13.4-35.0) % Seg Neutrophils % (40.0-70.0) % Seg Neutrophils # (1.8-7.7) K/mm3 Sodium (137-145) mmol/L BUN (7-17) mg/dL Glucose (65-100) mg/dL POC Glucose 144 H 125 H (70-105) mg/dL Alkaline Phosphatase (35-129) units/L Albumin (3.9-5) g/dL Urine Creatinine 118.2 H (0.1-20.0) mg/dL Urine Total Protein 33 H (5-11.8) mg/dL 08/09/21 08/09/21 08/09/21 Range/Units 05:06 05:06 07:58 WBC 11.2 H (4.5-11.0) K/mm3 RBC 3.62 L (3.65-5.03) M/mm3 RDW 15.3 H (13.2-15.2) % Lymph % (Auto) 11.9 L (13.4-35.0) % Seg Neutrophils % 79.6 H (40.0-70.0) % Seg Neutrophils # 8.9 H (1.8-7.7) K/mm3 Sodium 136 L (137-145) mmol/L BUN 35 H (7-17) mg/dL Glucose 134 H (65-100) mg/dL POC Glucose 109 H (70-105) mg/dL Alkaline Phosphatase 139 H (35-129) units/L Albumin 2.9 L (3.9-5) g/dL Urine Creatinine (0.1-20.0) mg/dL Urine Total Protein (5-11.8) mg/dL
[2021-08-09] MEDS ORDERED: atenoloL 50 MG TAB PO SCH (10:00)
--- NOTE | 2021-08-09 10:13 | Electrocardiograph Report ---
[facility] Test Date: 2021-08-09 Test Time: 07:54:21 Pat Name: MEDARDO VAZQUEZ Department: Room: A478 1 Gender: F Chairman: ROLO : 1955 Requested By: ANGELA WALLER Order Number: [id number] Reading MD: Nereida Jones Measurements Intervals [place] Rate: 52 P: 0 CA: 84 QRS: 2 QRSD: 126 T: 26 QT: 566 QTc: 528 Interpretive Statements Sinus bradycardia with first-degree AV block Nonspecific T wave changes Prolonged QT interval No previous ECG available for comparison Electronically Signed On 08-09-2021 10:12:55 EDT by Nereida Jones
[2021-08-09] MEDS: FAMOTIDINE 20 MG/2 ML INJ IV SCH ×2 (10:50→22:16)
[2021-08-09] MEDS: dilTIAZem 60 MG TAB PO SCH ×2 (10:52→22:15)
[2021-08-09] MEDS: LISINOPRIL 5 MG TAB PO SCH (10:54)
[2021-08-09] MEDS: cefTRIAXone/NS 2 GM/100 ML 2 GM/100 ML BAG IV SCH (11:32)
--- NOTE | 2021-08-09 11:42 | Progress Note ---
Assessment and Plan Afib (rate controlled) * Patient has known history of AFib. * EKG shows sinus 55 with 1st degree AV block. No acute ischemic changes. * Patient home medications are sotalol 180mg PO BID, atenolol 50mg PO BID, and Diltiazem 120mg PO BID. She has been on these medications for many years. Will resume meds * Previous EKGs and documentation show patient HR trend mid 50s-60s. Patient has no cardiac complaints * Patient is not on anticoagulation as an outpatient. Will continue to hold anticoagulation * Echo 05/16/2020- The estimated LV ejection fraction is normal at 55-60%. LV chamber size is normal. There is a sigmoid septum measuring 1.6 cm. Normal left atrial pressure and diastolic function. There is normal right ventricular size, wall dimension, and systolic function. The LA volume is mildly increased. Right Atrium chamber is mildly dilated. The ascending aorta is mildly dilated Pyelonephritis Hydroneprhosis Kidney Mass * Nephrology following * Urology following Continue home meds. EKG with no significant changes form previous EKGs Patient is stable from a cardiac perspective. Will see as needed Patient seen in conjunction with Dr. Cool who agrees with this plan of care. - Patient Problems (1) Acute kidney injury Current Visit: Yes Status: Acute (2) Atrial fibrillation Current Visit: Yes Status: Acute (3) Chronic diarrhea Current Visit: Yes Status: Acute (4) Hyperlipidemia LDL goal <100 Current Visit: Yes Status: Acute (5) Morbid obesity with BMI of 40.0-44.9, adult Current Visit: Yes Status: Acute (6) Pyelonephritis of left kidney Current Visit: Yes Status: Acute (7) Renal mass Current Visit: Yes Status: Acute Subjective Date of service: 08/09/21 Principal diagnosis: 1. Pyelonephritis #2 acute kidney injury #3 atrial fibrillation Interval history: Patient sitting in bed. reports feeling better. Has no cardiac complaints Sinus 55 with 1st degree block on monitor Objective Last Vital Signs Temp 97.9 F 08/09/21 07:30 Pulse 57 L 08/09/21 10:54 Resp 20 08/09/21 07:30 BP 128/62 08/09/21 10:54 Pulse Ox 95 08/09/21 07:30 - Physical Examination General: Appears Well HEENT: Positive: PERRL Neck: Positive: trachea midline Cardiac: Positive: Regular Rate, Bradycardia Lungs: Positive: Normal Breath Sounds Neuro: Positive: Grossly Intact Abdomen: Positive: Soft, Active Bowel Sounds Skin: Negative: Rash, Suspicious Lesions, Ulceration Extremities: Present: upper extr. pulses, lower extr. pulses. Absent: edema - Labs and Meds Cardiac Enzymes 08/09/21 Range/Units 05:06 AST 36 (5-40) units/L CBC 08/09/21 Range/Units 05:06 WBC 11.2 H (4.5-11.0) K/mm3 RBC 3.62 L (3.65-5.03) M/mm3 Hgb 10.5 (10.1-14.3) gm/dl Hct 31.8 (30.3-42.9) % Plt Count 321 (140-440) K/mm3 Lymph # (Auto) 1.3 (1.2-5.4) K/mm3 [place] # (Auto) 0.8 (0.0-0.8) K/mm3 Eos # (Auto) 0.1 (0.0-0.4) K/mm3 Baso # (Auto) 0.0 (0.0-0.1) K/mm3 Comprehensive Metabolic Panel 08/09/21 Range/Units 05:06 Sodium 136 L (137-145) mmol/L Potassium 3.6 (3.6-5.0) mmol/L Chloride 100.4 (98-107) mmol/L Carbon Dioxide 22 (22-30) mmol/L BUN 35 H (7-17) mg/dL Creatinine 1.2 (0.6-1.2) mg/dL Glucose 134 H (65-100) mg/dL Calcium 9.2 (8.4-10.2) mg/dL AST 36 (5-40) units/L ALT 46 (7-56) units/L Alkaline Phosphatase 139 H (35-129) units/L Total Protein 6.8 (6.3-8.2) g/dL Albumin 2.9 L (3.9-5) g/dL - Imaging and Cardiology EKG: pending, report reviewed, image reviewed Echo: report reviewed - Telemetry EKG Rhythm: Sinus Rhythm - EKG Sinus rhythms and dysrhythmias: sinus rhythm AV and intraventricular conduction: 1 AV block
--- NOTE | 2021-08-09 12:13 | Progress Note ---
Assessment and Plan - Patient Problems (1) Acute kidney injury Current Visit: Yes Status: Acute Plan to address problem: Acute kidney injury probably prerenal azotemia and left pyelonephritis with obstruction. Follow-up urine cultures. Continue volume repletion. Continue empiric antibiotics appropriately dosed to the degree of renal function. Uro logy input appreciated. Follow-up electrolytes and renal function. (2) Pyelonephritis of left kidney Current Visit: Yes Status: Acute Plan to address problem: Follow-up cultures. Continue empiric antibiotics. (3) Hydroureteronephrosis Current Visit: Yes Status: Acute Plan to address problem: Urology has been consulted to evaluate for possible cystoscopy and retrograde pyelogram. Follow-up kidney ultrasound in the morning (4) Renal mass Current Visit: Yes Status: Acute Plan to address problem: Urology evaluation -follow-up CT scan as an outpatient (5) Diarrhea Current Visit: Yes Status: Acute Plan to address problem: Work-up and treatment by primary attending. Will need GI evaluation at some point given prior history (6) Type 2 diabetes mellitus Current Visit: Yes Status: Acute Plan to address problem: Blood sugar management by primary attending (7) Morbid obesity with BMI of 40.0-44.9, adult Current Visit: Yes Status: Acute Plan to address problem: Long-term efforts at weight loss as an outpatient Subjective Date of service: 08/09/21 Principal diagnosis: 1. Pyelonephritis #2 acute kidney injury #3 atrial fibrillation Interval history: Patient seen lying in bed. She has no complaints today. Pain is resolving. No nausea or vomiting. Had diarrhea yesterday several times after breakfast. Was afraid to eat lunch or dinner. Has had breakfast this morning. No bowel movements yet. Objective - Exam Narrative Exam: Obese middle-aged female lying in bed in no acute distress HEENT: NCAT, pink oral mucous membrane Neck: Supple, no venous distention CVS: S1S2 RRR with no murmur, rub or gallop Chest: Clear to auscultation Abdomen: Protuberant, soft, nontender, no organomegaly, bowel sounds are present Extremities: No edema Genitourinary deferred Neuro: Awake, alert no focal deficits - Vital Signs Vital signs: Vital Signs - 12hr 08/09/21 08/09/21 08/09/21 00:20 00:30 00:40 Temperature Pulse Rate 55 L 53 L 53 L Respiratory 30 H 28 H 27 H Rate Blood Pressure 136/117 136/117 136/117 Blood Pressure [Right] O2 Sat by Pulse 95 94 95 Oximetry 08/09/21 08/09/21 08/09/21 00:50 01:00 01:10 Temperature Pulse Rate 53 L 53 L 52 L Respiratory 29 H 27 H 28 H Rate Blood Pressure 136/117 136/117 136/117 Blood Pressure [Right] O2 Sat by Pulse 94 94 94 Oximetry 08/09/21 08/09/21 08/09/21 01:20 01:30 01:40 Temperature Pulse Rate 51 L 52 L 52 L Respiratory 27 H 28 H 29 H Rate Blood Pressure 136/117 197/71 197/71 Blood Pressure [Right] O2 Sat by Pulse 94 92 93 Oximetry 08/09/21 08/09/21 08/09/21 01:50 02:00 02:10 Temperature Pulse Rate 51 L 55 L Respiratory 22 14 16 Rate Blood Pressure 197/71 217/58 217/58 Blood Pressure [Right] O2 Sat by Pulse 93 97 96 Oximetry 08/09/21 08/09/21 08/09/21 02:20 02:24 02:30 Temperature Pulse Rate 54 L 54 L Respiratory 20 16 27 H Rate Blood Pressure 217/58 140/67 Blood Pressure [Right] O2 Sat by Pulse 97 95 96 Oximetry 08/09/21 08/09/21 08/09/21 02:40 02:50 03:00 Temperature Pulse Rate 53 L 55 L 101 H Respiratory 19 25 H 14 Rate Blood Pressure 140/67 140/67 117/73 Blood Pressure [Right] O2 Sat by Pulse 91 96 95 Oximetry 08/09/21 08/09/21 08/09/21 04:58 07:30 10:52 Temperature 97.6 F 97.9 F Pulse Rate 53 L 57 L 57 L Respiratory 20 20 Rate Blood Pressure 126/49 128/62 Blood Pressure 128/62 [Right] O2 Sat by Pulse 97 95 Oximetry 08/09/21 08/09/21 08/09/21 10:54 11:41 11:42 Temperature Pulse Rate 57 L 60 Respiratory Rate Blood Pressure 128/62 117/48 Blood Pressure [Right] O2 Sat by Pulse 96 Oximetry - Lab 08/09/21 05:06 08/09/21 05:06 Most recent lab results Calcium 9.2 mg/dL (8.4-10.2) 08/09/21 05:06 Phosphorus 3.40 mg/dL (2.5-4.5) 08/09/21 05:06 Magnesium 1.80 mg/dL (1.7-2.3) 08/08/21 01:28 Urine Creatinine 118.2 mg/dL (0.1-20.0) H 08/09/21 03:01 Urine Total Protein 33 mg/dL (5-11.8) H 08/09/21 03:01 Medications & Allergies - Medications Allergies/Adverse Reactions: Allergies oxycodone [From OxyContin] Allergy (Severe, Verified 08/08/21 12:12) Anaphylaxis Home Medications: Home Medications Medication Instructions Recorded Confirmed Last Taken Type Atorvastatin [Lipitor] 80 mg PO QDAY 08/09/21 08/09/21 Unknown History Bupropion HCl [Wellbutrin XL] 300 mg PO QDAY 08/09/21 08/09/21 Unknown History Duloxetine HCl 60 mg PO QAM 08/09/21 08/09/21 Unknown History Metformin HCl [metFORMIN] 1,000 mg PO BID 08/09/21 08/09/21 Unknown History clonazePAM [Klonopin] 1 mg PO BID PRN 08/09/21 08/09/21 Unknown History dilTIAZem HCL [Tiadylt ER] 120 mg PO BID 08/09/21 08/09/21 Unknown History Active Medications: Generic Name Dose Route Start Last Admin Trade Name Freq PRN Reason Stop Dose Admin Acetaminophen 650 mg 08/08/21 11:47 Acetaminophen 325 Mg Tab PO Q4H PRN Pain MILD(1-3)/Fever >100.5/BENSON Atenolol 50 mg 08/08/21 22:00 08/08/21 22:01 Atenolol 50 Mg Tab PO Not Given BID IVET Atorvastatin Calcium 20 mg 08/08/21 22:00 08/08/21 21:42 Atorvastatin 20 Mg Tab PO 20 mg QHS IVET Administration Bupropion HCl 100 mg 08/08/21 13:00 08/08/21 21:42 Bupropion Sr 100 Mg Tab PO 100 mg BID IVET Administration Clonazepam 0.5 mg 08/08/21 12:00 Clonazepam 0.5 Mg Tab PO Q8H PRN Anxiety Dextrose 50 ml 08/08/21 11:47 Dextrose 50% In Water (25gm) 50 Ml Syringe IV Q30MIN PRN Hypoglycemia Protocol Diltiazem HCl 120 mg 08/09/21 10:00 08/09/21 10:52 Diltiazem 60 Mg Tab PO 120 mg BID IVET Administration Diphenoxylate HCl/Atropine 1 tab 08/08/21 17:57 08/09/21 05:11 Diphenoxylate/Atropine Tab PO 1 tab Q6H PRN Administration Diarrhea Duloxetine HCl 20 mg 08/09/21 10:00 Duloxetine 20 Mg Cap PO QDAY IVET Enoxaparin Sodium 40 mg 08/09/21 11:00 Enoxaparin 40 Mg/0.4 Ml Inj SUB-Q QDAY@1000 IVET Famotidine 10 mg 08/08/21 13:00 08/09/21 10:50 Famotidine 20 Mg/2 Ml Inj IV 10 mg BID IVET Administration Sodium Chloride 1,000 mls @ 75 mls/hr 08/08/21 09:00 Nacl 0.9% 1000 Ml IV DIRECT IVET Ceftriaxone Sodium 2 gm in 100 mls @ 200 mls/hr 08/09/21 11:00 08/09/21 11:32 Rocephin/Ns 2 Gm/100 Ml IV 200 mls/hr Q24H IVET Administration Protocol Insulin Human Lispro 0 unit 08/08/21 16:30 08/09/21 08:35 Insulin Lispro 100 Unit/Ml SUB-Q Not Given ACHS IVET Protocol Lisinopril 5 mg 08/09/21 10:00 08/09/21 10:54 Lisinopril 5 Mg Tab PO 5 mg QDAY IVET Administration Morphine Sulfate 2 mg 08/08/21 11:47 Morphine 2 Mg/1 Ml Inj IV Q4H PRN Pain, Moderate (4-6) Ondansetron HCl 4 mg 08/08/21 11:47 Ondansetron 4 Mg/2 Ml Inj IV Q8H PRN Nausea And Vomiting Oxycodone/Acetaminophen 1 tab 08/08/21 11:47 Oxycodone /Acetaminophen 5-325mg Tab PO Q6H PRN Pain, Moderate (4-6) Sodium Chloride 10 ml 08/08/21 06:38 Sodium Chloride 0.9% 10 Ml Flush Syringe IV PRN PRN LINE FLUSH Sodium Chloride 10 ml 08/08/21 13:00 08/09/21 10:57 Sodium Chloride 0.9% 10 Ml Flush Syringe IV 10 ml BID IVET Administration Sotalol HCl 180 mg 08/08/21 16:00 08/08/21 22:01 Sotalol 80 Mg Tab PO Not Given Q12HR IVET
--- NOTE | 2021-08-09 12:19 | Progress Note ---
Assessment and Plan - Patient Problems (1) Acute kidney injury Current Visit: Yes Status: Acute Plan to address problem: Multifactorial secondary to prerenal azotemia with volume loss diarrhea as well as pyelonephritis. We will start aggressive IV hydration. Improving with hydration. (2) Pyelonephritis of left kidney Current Visit: Yes Status: Acute Plan to address problem: Patient treated with vancomycin meropenem yesterday. Antibiotics now changed to Rocephin 1 g IV every 24 hours. Follow-up culture data. Patient defervesced and well currently afebrile. Flank pain resolved. Clinically improving. (3) Renal mass Current Visit: Yes Status: Acute Plan to address problem: Renal mass 5 mm suggestive of renal cell carcinoma. Urology consultation Renal ultrasound pending a.m. Evaluation for cystogram. (4) Transaminitis Current Visit: Yes Status: Acute Plan to address problem: Follow transaminases most likely secondary to decreased perfusion as well. May require follow-up abdominal CT at some point. (5) Atrial fibrillation Current Visit: Yes Status: Acute Plan to address problem: Atrial fibrillation. Patient was on 2 beta-blockers. Being treated by [place] [facility]. Patient does not know doses of beta-efrain. She is also taking Cardizem which includes 3 AV jesica blocking agents. Patient's heart rate at this point is 54. We will only add Cardizem at this time. Will obtain cardiology consult for further recommendations. Patient also has not been anticoagulated for quite some time. Patient states she is gone over this with cardiology multiple times about not being anticoagulated and they this is the best in her interest. 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 Sotalol Cardizem Lopressor. Patient not requiring anticoagulation. Appreciate cardiology input. (6) Diabetes Current Visit: Yes Status: Acute Plan to address problem: Patient on Metformin Accu-Cheks stable today. Will cover with just sliding scale insulin only at this time. Especially with acute kidney injury. Continues to have fair control of blood sugar. Would not add oral hypoglycemic. At this time continue sliding scale. (7) Hyperlipidemia LDL goal <100 Current Visit: Yes Status: Acute Plan to address problem: Goal LDL less than 100. Restart statin. (8) Morbid obesity with BMI of 40.0-44.9, adult Current Visit: Yes Status: Acute Plan to address problem: Encourage decrease carbohydrate. Increase exercise if possible. (9) Chronic diarrhea Current Visit: Yes Status: Acute Plan to address problem: Been going on for several years just worse at this point. We will treat with as needed Lomotil. Subjective Date of service: 08/09/21 Principal diagnosis: 1. Pyelonephritis #2 acute kidney injury #3 atrial fibrillation Interval history: 65-year-old female with a history of obesity, diabetes, atrial fibrillation, hyperlipidemia and major depression presents with a chief complaint of 1 chronic diarrhea that has progressively worsened over the past 4 weeks. Patient denies dark stool denies abdominal pain at this time. Patient states diarrhea has been common since she had a surgery in 2011 for a nonmalignant abdominal mass. Since that time she does suffer with diarrhea however now has progress until every time she eats she has a loose stool even including crackers. Patient also had additional complaint of left-sided flank pain which has been going on for approximately 3 days. Patient states she has chronic back pain which was similar to the pain that she was having therefore she was less concerned. After day 2 of back pain patient had arthralgias myalgias chills that did not respond to rest and Tylenol. Patient then went to see primary care physician who advised ER visit. Upon presentation to the ER patient had abdominal CT which showed pyelonephritis, hydronephrosis and a mass on the left kidney. Patient also found to have acute renal insufficiency as well. Patient admitted started on broad-spectrum antibiotics and reduction of hydronephrosis. 08/09/2001. Patient today states she feels better. Still has diarrhea is her main complaint today. Patient did not receive Lomotil yet. Patient pain has resolved. Objective - Constitutional Vitals: Vital Signs - 12hr 08/09/21 08/09/21 08/09/21 00:20 00:30 00:40 Temperature Pulse Rate 55 L 53 L 53 L Respiratory 30 H 28 H 27 H Rate Blood Pressure 136/117 136/117 136/117 Blood Pressure [Right] O2 Sat by Pulse 95 94 95 Oximetry 08/09/21 08/09/21 08/09/21 00:50 01:00 01:10 Temperature Pulse Rate 53 L 53 L 52 L Respiratory 29 H 27 H 28 H Rate Blood Pressure 136/117 136/117 136/117 Blood Pressure [Right] O2 Sat by Pulse 94 94 94 Oximetry 08/09/21 08/09/21 08/09/21 01:20 01:30 01:40 Temperature Pulse Rate 51 L 52 L 52 L Respiratory 27 H 28 H 29 H Rate Blood Pressure 136/117 197/71 197/71 Blood Pressure [Right] O2 Sat by Pulse 94 92 93 Oximetry 08/09/21 08/09/21 08/09/21 01:50 02:00 02:10 Temperature Pulse Rate 51 L 55 L Respiratory 22 14 16 Rate Blood Pressure 197/71 217/58 217/58 Blood Pressure [Right] O2 Sat by Pulse 93 97 96 Oximetry 08/09/21 08/09/21 08/09/21 02:20 02:24 02:30 Temperature Pulse Rate 54 L 54 L Respiratory 20 16 27 H Rate Blood Pressure 217/58 140/67 Blood Pressure [Right] O2 Sat by Pulse 97 95 96 Oximetry 08/09/21 08/09/21 08/09/21 02:40 02:50 03:00 Temperature Pulse Rate 53 L 55 L 101 H Respiratory 19 25 H 14 Rate Blood Pressure 140/67 140/67 117/73 Blood Pressure [Right] O2 Sat by Pulse 91 96 95 Oximetry 08/09/21 08/09/21 08/09/21 04:58 07:30 10:52 Temperature 97.6 F 97.9 F Pulse Rate 53 L 57 L 57 L Respiratory 20 20 Rate Blood Pressure 126/49 128/62 Blood Pressure 128/62 [Right] O2 Sat by Pulse 97 95 Oximetry 08/09/21 08/09/21 08/09/21 10:54 11:41 11:42 Temperature Pulse Rate 57 L 60 Respiratory Rate Blood Pressure 128/62 117/48 Blood Pressure [Right] O2 Sat by Pulse 96 Oximetry General appearance: Present: no acute distress, well-nourished - EENT Eyes: PERRL, EOM intact ENT: hearing intact, clear oral mucosa Ears: bilateral: normal - Neck Neck: supple, normal ROM - Respiratory Respiratory effort: normal Respiratory: bilateral: CTA - Breasts Breasts: normal - Cardiovascular Rhythm: regular Heart Sounds: Present: S1 & S2. Absent: gallop, rub Extremities: pulses intact, No edema, normal color, Full ROM - Gastrointestinal General gastrointestinal: Present: soft, non-tender, non-distended, normal bowel sounds - Genitourinary Female genitourinary: normal - Integumentary Integumentary: clear, warm, dry - Musculoskeletal Musculoskeletal: 1, strength equal bilaterally - Neurologic Neurologic: moves all extremities - Psychiatric Psychiatric: memory intact, appropriate mood/affect, intact judgment & insight - Labs CBC & Chem 7: 08/09/21 05:06 08/09/21 05:06 Labs: Abnormal lab results 08/08/21 08/08/21 08/09/21 Range/Units 16:56 22:00 03:01 WBC (4.5-11.0) K/mm3 RBC (3.65-5.03) M/mm3 RDW (13.2-15.2) % Lymph % (Auto) (13.4-35.0) % Seg Neutrophils % (40.0-70.0) % Seg Neutrophils # (1.8-7.7) K/mm3 Sodium (137-145) mmol/L BUN (7-17) mg/dL Glucose (65-100) mg/dL POC Glucose 144 H 125 H (70-105) mg/dL Alkaline Phosphatase (35-129) units/L Albumin (3.9-5) g/dL Urine Creatinine 118.2 H (0.1-20.0) mg/dL Urine Total Protein 33 H (5-11.8) mg/dL 08/09/21 08/09/21 08/09/21 Range/Units 05:06 05:06 07:58 WBC 11.2 H (4.5-11.0) K/mm3 RBC 3.62 L (3.65-5.03) M/mm3 RDW 15.3 H (13.2-15.2) % Lymph % (Auto) 11.9 L (13.4-35.0) % Seg Neutrophils % 79.6 H (40.0-70.0) % Seg Neutrophils # 8.9 H (1.8-7.7) K/mm3 Sodium 136 L (137-145) mmol/L BUN 35 H (7-17) mg/dL Glucose 134 H (65-100) mg/dL POC Glucose 109 H (70-105) mg/dL Alkaline Phosphatase 139 H (35-129) units/L Albumin 2.9 L (3.9-5) g/dL Urine Creatinine (0.1-20.0) mg/dL Urine Total Protein (5-11.8) mg/dL 08/09/21 Range/Units 11:36 WBC (4.5-11.0) K/mm3 RBC (3.65-5.03) M/mm3 RDW (13.2-15.2) % Lymph % (Auto) (13.4-35.0) % Seg Neutrophils % (40.0-70.0) % Seg Neutrophils # (1.8-7.7) K/mm3 Sodium (137-145) mmol/L BUN (7-17) mg/dL Glucose (65-100) mg/dL POC Glucose 193 H (70-105) mg/dL Alkaline Phosphatase (35-129) units/L Albumin (3.9-5) g/dL Urine Creatinine (0.1-20.0) mg/dL Urine Total Protein (5-11.8) mg/dL
[2021-08-09] MEDS: ENOXAPARIN 40 MG/0.4 ML INJ SUB-Q SCH (13:32)
[2021-08-09] MEDS: atenoloL 50 MG TAB PO SCH ×2 (13:33→22:14)
[2021-08-09] MEDS: DULoxetine 20 MG CAP PO SCH (16:00)
[2021-08-09] MEDS: buPROPion SR 100 MG TAB PO SCH ×2 (16:00→22:15)
[2021-08-10 06:23] LABS: Hematocrit 31.2 % (30.3-42.9); Hemoglobin 10.1 gm/dl (10.1-14.3); Mean Corpuscular HGB Conc 32 % (30-34); Mean Corpuscular Volume 87 fl (79-97); Platelet Count 332 K/mm3 (140-440); Red Blood Count 3.58 M/mm3 (3.65-5.03); Red Cell Distribution Width 15.4 % (13.2-15.2)
[2021-08-10 07:08] LABS: BUN/Creatinine Ratio 23; Blood Urea Nitrogen 21 mg/dL (7-17); Calcium 9.2 mg/dL (8.4-10.2); Hemolysis Index 2
--- NOTE | 2021-08-10 08:20 | Ultrasound Report ---
ULTRASOUND RENAL INDICATION / CLINICAL INFORMATION: Acute kidney injury. COMPARISON: None available. FINDINGS: RIGHT KIDNEY: Length = 13.8 cm. - Echogenicity: Normal. - Cortical Thickness: Thin - Hydronephrosis: None. - Cyst / Mass: None. - Stones: None seen. LEFT KIDNEY: Length = 12.0 cm. - Echogenicity: Normal. - Cortical Thickness: Thin. - Hydronephrosis: None. - Cyst / Mass: Within the midportion of the left kidney there is a hypoechoic mass measuring 4.4 x 4. 6 x 4.2 cm. - Stones: None seen. URINARY BLADDER: No significant abnormality. FREE FLUID: None. ADDITIONAL FINDINGS: None. IMPRESSION: 1. Left renal mass measuring up to 4.6 cm. This is concerning for neoplastic process. Triple phase MR I or CT of the kidneys is recommended. 2. Cortical thinning of the bilateral kidneys suggesting medical renal disease, correlate clinically. Signer Name: Yogi Kapoor DO Signed: 08/10/2021 8:16 AM Workstation Name: [id number]
--- NOTE | 2021-08-10 08:43 | Progress Note ---
Assessment and Plan - Patient Problems (1) Acute kidney injury Current Visit: Yes Status: Acute Plan to address problem: Acute kidney injury probably prerenal azotemia and left pyelonephritis with obstruction. Follow-up urine cultures. Continue volume repletion. Continue empiric antibiotics appropriately dosed to the degree of renal function. Uro logy input appreciated. Repeat ultrasound does not show any hydronephrosis. Follow-up electrolytes and renal function. (2) Pyelonephritis of left kidney Current Visit: Yes Status: Acute Plan to address problem: Follow-up cultures. Continue empiric antibiotics. (3) Hydroureteronephrosis Current Visit: Yes Status: Acute Plan to address problem: Repeat ultrasound does not show any hydronephrosis. (4) Renal mass Current Visit: Yes Status: Acute Plan to address problem: Urology evaluation -follow-up CT scan as an outpatient (5) Diarrhea Current Visit: Yes Status: Acute Plan to address problem: Work-up and treatment by primary attending. Will need GI evaluation at some point given prior history (6) Type 2 diabetes mellitus Current Visit: Yes Status: Acute Plan to address problem: Blood sugar management by primary attending (7) Morbid obesity with BMI of 40.0-44.9, adult Current Visit: Yes Status: Acute Plan to address problem: Long-term efforts at weight loss as an outpatient Subjective Date of service: 08/10/21 Principal diagnosis: 1. Pyelonephritis #2 acute kidney injury #3 atrial fibrillation Interval history: Patient seen lying in bed. She has no complaints today. Pain has resolved. No nausea or vomiting. Objective - Exam Narrative Exam: Obese middle-aged female lying in bed in no acute distress HEENT: NCAT, pink oral mucous membrane Neck: Supple, no venous distention CVS: S1S2 RRR with no murmur, rub or gallop Chest: Clear to auscultation Abdomen: Protuberant, soft, nontender, no organomegaly, bowel sounds are present Extremities: No edema Genitourinary deferred Neuro: Awake, alert no focal deficits - Vital Signs Vital signs: Vital Signs - 12hr 08/09/21 08/09/21 08/10/21 22:14 22:15 00:33 Temperature 97.8 F Pulse Rate 55 L 55 L 55 L Respiratory 20 Rate Blood Pressure 129/61 129/61 147/64 O2 Sat by Pulse 98 Oximetry 0908/10/21 08/10/21 02:00 03:53 08:15 Temperature 98.6 F 97.5 F L Pulse Rate 54 L 63 Respiratory 20 22 Rate Blood Pressure 133/59 149/63 O2 Sat by Pulse 96 91 97 Oximetry - Lab 08/10/21 04:19 08/10/21 04:19 Most recent lab results Calcium 9.2 mg/dL (8.4-10.2) 08/10/21 04:19 Phosphorus 3.40 mg/dL (2.5-4.5) 08/09/21 05:06 Magnesium 1.80 mg/dL (1.7-2.3) 08/08/21 01:28 Urine Creatinine 118.2 mg/dL (0.1-20.0) H 08/09/21 03:01 Urine Total Protein 33 mg/dL (5-11.8) H 08/09/21 03:01 Medications & Allergies - Medications Allergies/Adverse Reactions: Allergies oxycodone [From OxyContin] Allergy (Severe, Verified 08/08/21 12:12) Anaphylaxis Home Medications: Home Medications Medication Instructions Recorded Confirmed Last Taken Type Atorvastatin [Lipitor] 80 mg PO QDAY 08/09/21 08/09/21 Unknown History Bupropion HCl [Wellbutrin XL] 300 mg PO QDAY 08/09/21 08/09/21 Unknown History Duloxetine HCl 60 mg PO QAM 08/09/21 08/09/21 Unknown History Metformin HCl [metFORMIN] 1,000 mg PO BID 08/09/21 08/09/21 Unknown History clonazePAM [Klonopin] 1 mg PO BID PRN 08/09/21 08/09/21 Unknown History dilTIAZem HCL [Tiadylt ER] 120 mg PO BID 08/09/21 08/09/21 Unknown History Active Medications: Generic Name Dose Route Start Last Admin Trade Name Freq PRN Reason Stop Dose Admin Acetaminophen 650 mg 08/08/21 11:47 Acetaminophen 325 Mg Tab PO Q4H PRN Pain MILD(1-3)/Fever >100.5/BENSON Atenolol 50 mg 08/08/21 22:00 08/09/21 22:14 Atenolol 50 Mg Tab PO 50 mg BID IVET Administration Atorvastatin Calcium 20 mg 08/08/21 22:00 08/09/21 22:28 Atorvastatin 20 Mg Tab PO 20 mg QHS IVET Administration Bupropion HCl 100 mg 08/08/21 13:00 08/09/21 22:15 Bupropion Sr 100 Mg Tab PO 100 mg BID IVET Administration Clonazepam 0.5 mg 08/08/21 12:00 Clonazepam 0.5 Mg Tab PO Q8H PRN Anxiety Dextrose 50 ml 08/08/21 11:47 Dextrose 50% In Water (25gm) 50 Ml Syringe IV Q30MIN PRN Hypoglycemia Protocol Diltiazem HCl 120 mg 08/09/21 10:00 08/09/21 22:15 Diltiazem 60 Mg Tab PO 120 mg BID IVET Administration Diphenoxylate HCl/Atropine 1 tab 08/08/21 17:57 08/09/21 05:11 Diphenoxylate/Atropine Tab PO 1 tab Q6H PRN Administration Diarrhea Duloxetine HCl 20 mg 08/09/21 10:00 08/09/21 16:00 Duloxetine 20 Mg Cap PO 20 mg QDAY IVET Administration Enoxaparin Sodium 40 mg 08/09/21 11:00 08/09/21 13:32 Enoxaparin 40 Mg/0.4 Ml Inj SUB-Q 40 mg QDAY@1000 IVET Administration Famotidine 10 mg 08/08/21 13:00 08/09/21 22:16 Famotidine 20 Mg/2 Ml Inj IV 10 mg BID IVET Administration Sodium Chloride 1,000 mls @ 75 mls/hr 08/08/21 09:00 Nacl 0.9% 1000 Ml IV DIRECT IVET Ceftriaxone Sodium 2 gm in 100 mls @ 200 mls/hr 08/09/21 11:00 08/09/21 11:32 Rocephin/Ns 2 Gm/100 Ml IV 200 mls/hr Q24H IVET Administration Protocol Insulin Human Lispro 0 unit 08/08/21 16:30 08/09/21 22:19 Insulin Lispro 100 Unit/Ml SUB-Q Not Given ACHS IVET Protocol Lisinopril 5 mg 08/09/21 10:00 08/09/21 10:54 Lisinopril 5 Mg Tab PO 5 mg QDAY IVET Administration Morphine Sulfate 2 mg 08/08/21 11:47 Morphine 2 Mg/1 Ml Inj IV Q4H PRN Pain, Moderate (4-6) Ondansetron HCl 4 mg 08/08/21 11:47 Ondansetron 4 Mg/2 Ml Inj IV Q8H PRN Nausea And Vomiting Oxycodone/Acetaminophen 1 tab 08/08/21 11:47 Oxycodone /Acetaminophen 5-325mg Tab PO Q6H PRN Pain, Moderate (4-6) Sodium Chloride 10 ml 08/08/21 06:38 Sodium Chloride 0.9% 10 Ml Flush Syringe IV PRN PRN LINE FLUSH Sodium Chloride 10 ml 08/08/21 13:00 08/09/21 22:18 Sodium Chloride 0.9% 10 Ml Flush Syringe IV 10 ml BID IVET Administration Sotalol HCl 180 mg 08/08/21 16:00 08/09/21 22:26 Sotalol 80 Mg Tab PO 180 mg Q12HR IVET Administration
[2021-08-10] MEDS: ENOXAPARIN 30 MG/0.3 ML INJ SUB-Q SCH (08:54)
[2021-08-10] MEDS: INSULIN LISPRO 100 UNIT/ML SUB-Q SCH ×4 (08:54→22:09)
--- NOTE | 2021-08-10 09:36 | Progress Note ---
Assessment and Plan Assessment and plan: 65-year-old female with a history of obesity, diabetes, atrial fibrillation, hyperlipidemia and major depression presents with a chief complaint of 1 chronic diarrhea that has progressively worsened over the past 4 weeks. Patient denies dark stool denies abdominal pain at this time. Patient states diarrhea has been common since she had a surgery in 2011 for a nonmalignant abdominal mass. Since that time she does suffer with diarrhea however now has progress until every time she eats she has a loose stool even including crackers. Patient also had additional complaint of left-sided flank pain which has been going on for approximately 3 days. Patient states she has chronic back pain which was similar to the pain that she was having therefore she was less concerned. After day 2 of back pain patient had arthralgias myalgias chills that did not respond to rest and Tylenol. Patient then went to see primary care physician who advised ER visit. Upon presentation to the ER patient had abdominal CT which showed pyelonephritis, hydronephrosis and a mass on the left kidney. Patient also found to have acute renal insufficiency as well. Patient admitted started on broad-spectrum antibiotics and reduction of hydronephrosis. Sepsis. The patient meets criteria given the tachypnea, tachycardia and diagnosis of left pyelonephritis. Left pyelonephritis. CT which showed pyelonephritis, hydronephrosis and a 5cm mass on the left kidney. Atrial fibrillation Renal mass. Transaminitis. Etiology likely secondary to sepsis Diabetes mellitus type 2. Hyperlipidemia Morbid obese Chronic diarrhea 08/09/2001. Patient today states she feels better. Still has diarrhea is her main complaint today. Patient did not receive Lomotil yet. Patient pain has resolved. 08/10/2021. Continue home medications for atrial fibrillation. Patient with diltiazem sotalol and atenolol. Cardiology signed off. Consult ID with regards to the pyelonephritis and duration of IV antibiotic treatment History Interval history: No new issues overnight. Hospitalist Physical - Constitutional Vitals: Temp Pulse Resp BP Pulse Ox 97.5 F L 63 22 149/63 97 08/10/21 08:15 08/10/21 08:15 08/10/21 08:15 08/10/21 08:15 08/10/21 08:15 General appearance: Present: no acute distress, well-nourished - EENT Eyes: Present: PERRL, EOM intact ENT: hearing intact, clear oral mucosa, dentition normal - Neck Neck: Present: supple, normal ROM - Respiratory Respiratory effort: normal Respiratory: bilateral: CTA - Cardiovascular Rhythm: regular Heart Sounds: Present: S1 & S2. Absent: gallop, rub - Extremities Extremities: no ischemia, No edema, Full ROM - Abdominal General gastrointestinal: soft, non-tender, non-distended, normal bowel sounds - Integumentary Integumentary: Present: clear, warm, dry - Neurologic Neurologic: CNII-XII intact, moves all extremities Results - Labs CBC & Chem 7: 08/10/21 04:19 08/10/21 04:19 Labs: Laboratory Last Values WBC 10.6 K/mm3 (4.5-11.0) 08/10/21 04:19 RBC 3.58 M/mm3 (3.65-5.03) L 08/10/21 04:19 Hgb 10.1 gm/dl (10.1-14.3) 08/10/21 04:19 Hct 31.2 % (30.3-42.9) 08/10/21 04:19 MCV 87 fl (79-97) 08/10/21 04:19 MCH 28 pg (28-32) 08/10/21 04:19 MCHC 32 % (30-34) 08/10/21 04:19 RDW 15.4 % (13.2-15.2) H 08/10/21 04:19 Plt Count 332 K/mm3 (140-440) 08/10/21 04:19 Lymph % (Auto) 11.9 % (13.4-35.0) L 08/09/21 05:06 [place] % (Auto) 7.2 % (0.0-7.3) 08/09/21 05:06 Eos % (Auto) 0.9 % (0.0-4.3) 08/09/21 05:06 Baso % (Auto) 0.4 % (0.0-1.8) 08/09/21 05:06 Lymph # (Auto) 1.3 K/mm3 (1.2-5.4) 08/09/21 05:06 [place] # (Auto) 0.8 K/mm3 (0.0-0.8) 08/09/21 05:06 Eos # (Auto) 0.1 K/mm3 (0.0-0.4) 08/09/21 05:06 Baso # (Auto) 0.0 K/mm3 (0.0-0.1) 08/09/21 05:06 Seg Neutrophils % 79.6 % (40.0-70.0) H 08/09/21 05:06 Seg Neutrophils # 8.9 K/mm3 (1.8-7.7) H 08/09/21 05:06 PT 15.0 Sec. (12.2-14.9) H 08/08/21 01:28 INR 1.13 (0.87-1.13) 08/08/21 01:28 APTT 26.0 Sec. (24.2-36.6) 08/08/21 01:28 Sodium 143 mmol/L (137-145) D 08/10/21 04:19 Potassium 3.8 mmol/L (3.6-5.0) 08/10/21 04:19 Chloride 108.5 mmol/L (98-107) H 08/10/21 04:19 Carbon Dioxide 20 mmol/L (22-30) L 08/10/21 04:19 Anion Gap 18 mmol/L 08/10/21 04:19 BUN 21 mg/dL (7-17) H 08/10/21 04:19 Creatinine 0.9 mg/dL (0.6-1.2) 08/10/21 04:19 Estimated GFR > 60 ml/min 08/10/21 04:19 BUN/Creatinine Ratio 23 % 08/10/21 04:19 Glucose 147 mg/dL (65-100) H 08/10/21 04:19 POC Glucose 146 mg/dL (70-105) H 08/09/21 21:02 Lactic Acid 0.90 mmol/L (0.7-2.0) 08/08/21 07:07 Calcium 9.2 mg/dL (8.4-10.2) 08/10/21 04:19 Phosphorus 3.40 mg/dL (2.5-4.5) 08/09/21 05:06 Magnesium 1.80 mg/dL (1.7-2.3) 08/08/21 01:28 Total Bilirubin 0.40 mg/dL (0.1-1.2) 08/09/21 05:06 AST 36 units/L (5-40) 08/09/21 05:06 ALT 46 units/L (7-56) 08/09/21 05:06 Alkaline Phosphatase 139 units/L (35-129) H 08/09/21 05:06 Total Protein 6.8 g/dL (6.3-8.2) 08/09/21 05:06 Albumin 2.9 g/dL (3.9-5) L 08/09/21 05:06 Albumin/Globulin Ratio 0.7 % 08/09/21 05:06 Lipase 30 units/L (13-60) 08/08/21 01:28 Urine Color [place] (Yellow) 08/08/21 Unknown Urine Turbidity Cloudy (Clear) 08/08/21 Unknown Urine pH 5.0 (5.0-7.0) 08/08/21 Unknown Ur Specific [place] 1.016 (1.003-1.030) 08/08/21 Unknown Urine Protein 100 mg/dl mg/dL (Negative) 08/08/21 Unknown Urine Glucose (UA) Neg mg/dL (Negative) 08/08/21 Unknown Urine Ketones Neg mg/dL (Negative) 08/08/21 Unknown Urine Blood Mod (Negative) 08/08/21 Unknown Urine Nitrite Neg (Negative) 08/08/21 Unknown Urine Bilirubin Neg (Negative) 08/08/21 Unknown Urine Urobilinogen 2.0 mg/dL (<2.0) 08/08/21 Unknown Ur Leukocyte Esterase Lg (Negative) 08/08/21 Unknown Urine WBC (Auto) > 182.0 /HPF (0.0-6.0) H 08/08/21 Unknown Urine RBC (Auto) 2.0 /HPF (0.0-6.0) 08/08/21 Unknown U Epithel Cells (Auto) 7.0 /HPF (0-13.0) 08/08/21 Unknown Urine Bacteria (Auto) 3+ /HPF (Negative) 08/08/21 Unknown Urine WBC Clumps 3+ /HPF 08/08/21 Unknown Urine Mucus Few /HPF 08/08/21 Unknown Urine Creatinine 118.2 mg/dL (0.1-20.0) H 08/09/21 03:01 Urine Total Protein 33 mg/dL (5-11.8) H 08/09/21 03:01 Microbiology: Microbiology 08/08/21 Unknown Urine,Clean Catch Urine Culture - Final [place]/IV: Voiding Method Toilet Active Medications - Current Medications Current Medications: Generic Name Dose Route Start Last Admin Trade Name Freq PRN Reason Stop Dose Admin Acetaminophen 650 mg 08/08/21 11:47 Acetaminophen 325 Mg Tab PO Q4H PRN Pain MILD(1-3)/Fever >100.5/BENSON Atenolol 50 mg 08/08/21 22:00 08/09/21 22:14 Atenolol 50 Mg Tab PO 50 mg BID IVET Administration Atorvastatin Calcium 20 mg 08/08/21 22:00 08/09/21 22:28 Atorvastatin 20 Mg Tab PO 20 mg QHS IVET Administration Bupropion HCl 100 mg 08/08/21 13:00 08/09/21 22:15 Bupropion Sr 100 Mg Tab PO 100 mg BID IVET Administration Clonazepam 0.5 mg 08/08/21 12:00 Clonazepam 0.5 Mg Tab PO Q8H PRN Anxiety Dextrose 50 ml 08/08/21 11:47 Dextrose 50% In Water (25gm) 50 Ml Syringe IV Q30MIN PRN Hypoglycemia Protocol Diltiazem HCl 120 mg 08/09/21 10:00 08/09/21 22:15 Diltiazem 60 Mg Tab PO 120 mg BID IVET Administration Diphenoxylate HCl/Atropine 1 tab 08/08/21 17:57 08/09/21 05:11 Diphenoxylate/Atropine Tab PO 1 tab Q6H PRN Administration Diarrhea Duloxetine HCl 20 mg 08/09/21 10:00 08/09/21 16:00 Duloxetine 20 Mg Cap PO 20 mg QDAY IVET Administration Enoxaparin Sodium 40 mg 08/09/21 11:00 08/09/21 13:32 Enoxaparin 40 Mg/0.4 Ml Inj SUB-Q 40 mg QDAY@1000 IVET Administration Famotidine 10 mg 08/08/21 13:00 08/09/21 22:16 Famotidine 20 Mg/2 Ml Inj IV 10 mg BID IVET Administration Sodium Chloride 1,000 mls @ 75 mls/hr 08/08/21 09:00 Nacl 0.9% 1000 Ml IV DIRECT IVET Ceftriaxone Sodium 2 gm in 100 mls @ 200 mls/hr 08/09/21 11:00 08/09/21 11:32 Rocephin/Ns 2 Gm/100 Ml IV 200 mls/hr Q24H IVET Administration Protocol Insulin Human Lispro 0 unit 08/08/21 16:30 08/10/21 08:54 Insulin Lispro 100 Unit/Ml SUB-Q Not Given ACHS IVET Protocol Lisinopril 5 mg 08/09/21 10:00 08/09/21 10:54 Lisinopril 5 Mg Tab PO 5 mg QDAY IVET Administration Morphine Sulfate 2 mg 08/08/21 11:47 Morphine 2 Mg/1 Ml Inj IV Q4H PRN Pain, Moderate (4-6) Ondansetron HCl 4 mg 08/08/21 11:47 Ondansetron 4 Mg/2 Ml Inj IV Q8H PRN Nausea And Vomiting Oxycodone/Acetaminophen 1 tab 08/08/21 11:47 Oxycodone /Acetaminophen 5-325mg Tab PO Q6H PRN Pain, Moderate (4-6) Sodium Chloride 10 ml 08/08/21 06:38 Sodium Chloride 0.9% 10 Ml Flush Syringe IV PRN PRN LINE FLUSH Sodium Chloride 10 ml 08/08/21 13:00 08/09/21 22:18 Sodium Chloride 0.9% 10 Ml Flush Syringe IV 10 ml BID IVET Administration Sotalol HCl 180 mg 08/08/21 16:00 08/09/21 22:26 Sotalol 80 Mg Tab PO 180 mg Q12HR IVET Administration
[2021-08-10] MEDS ORDERED: FAMOTIDINE 10 MG TAB PO SCH (11:00)
[2021-08-10] MEDS: dilTIAZem 60 MG TAB PO SCH ×2 (11:44→22:09)
[2021-08-10] MEDS: atenoloL 50 MG TAB PO SCH ×2 (11:45→22:10)
[2021-08-10] MEDS: ENOXAPARIN 40 MG/0.4 ML INJ SUB-Q SCH (11:45)
[2021-08-10] MEDS: cefTRIAXone/NS 2 GM/100 ML 2 GM/100 ML BAG IV SCH (11:46)
[2021-08-10] MEDS: LISINOPRIL 5 MG TAB PO SCH (11:46)
--- NOTE | 2021-08-10 13:42 | Consultation ---
History of Present Illness - Reason for Consult Consult date: 08/10/21 Pyelonephritis - History of Present Illness 65-year-old female with history of diabetes mellitus, atrial fibrillation, diver ticulosis, chronic back pain, left femur fracture, colon mass status post resection, admitted on 08/08/2021 secondary to 4-week history of left sided abdominal pain, poor appetite and diarrhea. Patient had colonoscopy 3 years ago which was benign. On arrival, temperature 97.9, HR 57, RR 18, O2 sat 98, BP 110/64. Initial WBC 11.7. AST 58, ALT 64. Urinalysis with 182 WBCs, large leukocyte esterase. Abdominal CTA shows abnormal left kidney with a masslike of 5 cm with mild left hydroureteronephrosis. Renal ultrasound with a hypoechoic mass of the left kidney 4.6 cm. Review of Systems: positive in bold print General: fever, chills, malaise Cutaneous: rash, pruritus Head: headaches or injury Eyes: changes in vision, eye pain, double vision Ears: ear pain, ear discharge, ringing or hearing loss Nose: nose bleeding, stuffiness Mouth & throat: bleeding gums, horseness, no dental problems, or swollen glands Neck: no pain, node enlargement/lumps, tyroid enlargement or tenderness Respiratory: SOB, cough, PALM, wheezing, sputum, hemoptysis, pleuritic chest pain Cardiovascular: chest pain, leg edema, cyanosis, PALM, orthopnea Musculoskeletal: edema, deformities, pain Gastrointestinal: nausea, vomiting, hematemesis, diarrhea, constipation, melena, bright red blood in stools, fecal incontinence, jaundice Genitourinary/Reproductive: flank pain, frequent urination, dysuria, hematuria, incontinence Neurogical: seizures, headaches, weakness, paresthesias, loss of speech or vision; memory loss, vertigo, tremors, numbness Psychiatric: stable mood; excessive anxiety, sadness or moodiness Past History Past Medical History: atrial fib, diabetes, hyperlipidemia, other (Dive rticulosis, colonic mass status post resection, chronic back pain, unable to walk due to fracture of femur for 2 years now) Past Surgical History: Other (Colonoscopy needs resection of the polyp, bowel resection of nonmalignant colonic mass) Social history: Lives alone (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 Moved to [place] about 5 years ago after she retired). denies: smoking, alcohol abuse, prescription drug abuse, IV drug use Family history: CAD (Both parents of heart disease), other (2 sisters are alive and in good health) Medications and Allergies Allergies Allergy/AdvReac Type Severity Reaction Status Date / Time oxycodone [From OxyContin] Allergy Severe Anaphylaxis Verified 08/08/21 12:12 Home Medications Medication Instructions Recorded Confirmed Last Taken Type Atorvastatin [Lipitor] 80 mg PO QDAY 08/09/21 08/09/21 Unknown History Bupropion HCl [Wellbutrin XL] 300 mg PO QDAY 08/09/21 08/09/21 Unknown History Duloxetine HCl 60 mg PO QAM 08/09/21 08/09/21 Unknown History Metformin HCl [metFORMIN] 1,000 mg PO BID 08/09/21 08/09/21 Unknown History clonazePAM [Klonopin] 1 mg PO BID PRN 08/09/21 08/09/21 Unknown History dilTIAZem HCL [Tiadylt ER] 120 mg PO BID 08/09/21 08/09/21 Unknown History Active Meds: Active Medications Acetaminophen (Acetaminophen 325 Mg Tab) 650 mg PO Q4H PRN PRN Reason: Pain MILD(1-3)/Fever >100.5/[facility]ENSON Atenolol (Atenolol 50 Mg Tab) 50 mg PO BID [facility] Last Admin: 08/10/21 11:45 Dose: 50 mg Documented by: Atorvastatin Calcium (Atorvastatin 20 Mg Tab) 20 mg PO QHS [facility] Last Admin: 08/09/21 22:28 Dose: 20 mg Documented by: Bupropion HCl (Bupropion Sr 100 Mg Tab) 100 mg PO BID [facility] Last Admin: 08/09/21 22:15 Dose: 100 mg Documented by: Clonazepam (Clonazepam 0.5 Mg Tab) 0.5 mg PO Q8H PRN PRN Reason: Anxiety Dextrose (Dextrose 50% In Water (25gm) 50 Ml Syringe) 50 ml IV Q30MIN PRN; Protocol PRN Reason: Hypoglycemia Diltiazem HCl (Diltiazem 60 Mg Tab) 120 mg PO BID [facility] Last Admin: 08/10/21 11:44 Dose: 120 mg Documented by: Diphenoxylate HCl/Atropine (Diphenoxylate/Atropine Tab) 1 tab PO Q6H PRN PRN Reason: Diarrhea Last Admin: 08/09/21 05:11 Dose: 1 tab Documented by: Duloxetine HCl (Duloxetine 20 Mg Cap) 20 mg PO QDAY [facility] Last Admin: 08/09/21 16:00 Dose: 20 mg Documented by: Enoxaparin Sodium (Enoxaparin 40 Mg/0.4 Ml Inj) 40 mg SUB-Q QDAY@1000 IVET Last Admin: 08/10/21 11:45 Dose: 40 mg Documented by: Famotidine (Famotidine 10 Mg Tab) 10 mg PO Q12HR [facility] Sodium Chloride (Nacl 0.9% 1000 Ml) 1,000 mls @ 75 mls/hr IV DIRECT IVET Ceftriaxone Sodium (Rocephin/Ns 2 Gm/100 Ml) 2 gm in 100 mls @ 200 mls/hr IV Q24H [facility]; Protocol Stop: 08/15/21 11:29 Last Admin: 08/10/21 11:46 Dose: 200 mls/hr Documented by: Insulin Human Lispro (Insulin Lispro 100 Unit/Ml) 0 unit SUB-Q ACHS [facility]; Protocol Last Admin: 08/10/21 11:46 Dose: Not Given Documented by: Lisinopril (Lisinopril 5 Mg Tab) 5 mg PO QDAY [facility] Last Admin: 08/10/21 11:46 Dose: 5 mg Documented by: Morphine Sulfate (Morphine 2 Mg/1 Ml Inj) 2 mg IV Q4H PRN PRN Reason: Pain, Moderate (4-6) Ondansetron HCl (Ondansetron 4 Mg/2 Ml Inj) 4 mg IV Q8H PRN PRN Reason: Nausea And Vomiting Oxycodone/Acetaminophen (Oxycodone /Acetaminophen 5-325mg Tab) 1 tab PO Q6H PRN PRN Reason: Pain, Moderate (4-6) Sodium Chloride (Sodium Chloride 0.9% 10 Ml Flush Syringe) 10 ml IV PRN PRN PRN Reason: LINE FLUSH Sodium Chloride (Sodium Chloride 0.9% 10 Ml Flush Syringe) 10 ml IV BID [facility] Last Admin: 08/10/21 11:45 Dose: 10 ml Documented by: Sotalol HCl (Sotalol 80 Mg Tab) 180 mg PO Q12HR [facility] Last Admin: 08/09/21 22:26 Dose: 180 mg Documented by: Physical Examination - Physical Exam Narrative exam: General appearance: Alert in NAD pleasant Eyes: anicteric sclerae, moist conjunctivae; no lid-lag; PERRLA HENT: Normocephalic, Atraumatic; normal external ears, nares open, oropharynx clear with moist mucous membranes and no oral thrush; normal hard and soft palate. Neck: supple, tracheal midline, no JVD Lungs: CTA, with normal respiratory effort and no intercostal retractions CV: RRR no murmur Abdomen: Soft, non-tender; obese no costovertebral tenderness Extremities: no edema, no cyanosis Skin: No rash. Psych: no agitated Neuro: alert and oriented x 3. Moving all extermities - Constitutional Vitals: Vital Signs Temp Pulse Resp BP Pulse Ox 97.4 F L 64 20 130/51 95 08/10/21 11:39 08/10/21 11:39 08/10/21 11:39 08/10/21 11:39 08/10/21 11:39 Temperature -Last 24 Hours Temperature 97.4 F Temperature 97.5 F Temperature 98.6 F Temperature 97.8 F Temperature 97.7 F Results - Labs CBC & Chem 7: 08/10/21 04:19 08/10/21 04:19 Labs: Abnormal lab results 08/09/21 08/09/21 08/10/21 Range/Units 15:47 21:02 04:19 RBC 3.58 L (3.65-5.03) M/mm3 RDW 15.4 H (13.2-15.2) % Chloride (98-107) mmol/L Carbon Dioxide (22-30) mmol/L BUN (7-17) mg/dL Glucose (65-100) mg/dL POC Glucose 119 H 146 H (70-105) mg/dL 08/10/21 08/10/21 Range/Units 04:19 11:25 RBC (3.65-5.03) M/mm3 RDW (13.2-15.2) % Chloride 108.5 H (98-107) mmol/L Carbon Dioxide 20 L (22-30) mmol/L BUN 21 H (7-17) mg/dL Glucose 147 H (65-100) mg/dL POC Glucose 141 H (70-105) mg/dL Assessment and Plan Cultures: Urine culture 08/08/2021 100,000 mixed bacteria CFU Assessment: 65-year-old female with history of diabetes mellitus, atrial fibrillation, diverticulosis, chronic back pain, left femur fracture, colon mass status post resection, admitted on 08/08/2021 secondary to 4-week history of left sided abdominal pain, poor appetite and diarrhea: #UTI: urine culture with mixed bacteria, CT with a 5 cm last night showing the left kidney ? Malignancy. #Elevated LFTs: of unclear etiology. #Morbid obesity Recommendations: Continue ceftriaxone 2 g IV daily D 2 of 7 Follow-up with urology as an outpatient Okay to discharge tomorrow on Levaquin 500 g p.o. 7 days till 08/15 Will follow. Rose Turpin MD Infectious Diseases Hides Inspector [facility] M [phone] O [phone]
[2021-08-10] MEDS: buPROPion SR 100 MG TAB PO SCH ×2 (18:34→22:08)
[2021-08-10] MEDS: DULoxetine 20 MG CAP PO SCH (18:34)
[2021-08-10] MEDS: FAMOTIDINE 20 MG/2 ML INJ IV SCH (18:36)
[2021-08-10] MEDS: FAMOTIDINE 10 MG TAB PO SCH (22:08)
--- NOTE | 2021-08-11 08:33 | Progress Note ---
Assessment and Plan - Patient Problems (1) Acute kidney injury Current Visit: Yes Status: Acute Plan to address problem: Acute kidney injury probably prerenal azotemia and left pyelonephritis with obstruction. Follow-up urine cultures. Continue volume repletion. Continue empiric antibiotics appropriately dosed to the degree of renal function. Uro logy input appreciated. Repeat ultrasound does not show any hydronephrosis. Okay to discharge from renal standpoint (2) Pyelonephritis of left kidney Current Visit: Yes Status: Acute Plan to address problem: Urine culture showed contaminated sample. Antibiotics as recommended by infectious disease data security consultant. (3) Hydroureteronephrosis Current Visit: Yes Status: Acute Plan to address problem: Repeat ultrasound does not show any hydronephrosis. (4) Renal mass Current Visit: Yes Status: Acute Plan to address problem: Urology evaluation -follow-up CT scan as an outpatient (5) Diarrhea Current Visit: Yes Status: Acute Plan to address problem: Resolved. (6) Type 2 diabetes mellitus Current Visit: Yes Status: Acute Plan to address problem: Blood sugar management by primary attending (7) Morbid obesity with BMI of 40.0-44.9, adult Current Visit: Yes Status: Acute Plan to address problem: Long-term efforts at weight loss as an outpatient Subjective Date of service: 08/11/21 Principal diagnosis: 1. Pyelonephritis #2 acute kidney injury #3 atrial fibrillation Interval history: Patient seen lying in bed. She has no complaints today. Pain has resolved. No nausea or vomiting. She feels much better Objective - Exam Narrative Exam: Obese middle-aged female lying in bed in no acute distress HEENT: NCAT, pink oral mucous membrane Neck: Supple, no venous distention CVS: S1S2 RRR with no murmur, rub or gallop Chest: Clear to auscultation Abdomen: Protuberant, soft, nontender, no organomegaly, bowel sounds are present Extremities: No edema Genitourinary deferred Neuro: Awake, alert no focal deficits - Vital Signs Vital signs: Vital Signs - 12hr 08/10/21 08/10/21 08/11/21 22:09 23:46 00:00 Temperature 98.0 F Pulse Rate 60 63 61 Respiratory 18 Rate Blood Pressure 156/71 Blood Pressure [Right] O2 Sat by Pulse 96 Oximetry 08/11/21 08/11/21 08/11/21 00:31 04:06 07:00 Temperature 97.9 F 97.6 F Pulse Rate 64 65 Respiratory 20 20 Rate Blood Pressure 153/66 Blood Pressure 139/70 [Right] O2 Sat by Pulse 94 99 97 Oximetry - Lab 08/10/21 04:19 08/10/21 04:19 Most recent lab results Calcium 9.2 mg/dL (8.4-10.2) 08/10/21 04:19 Phosphorus 3.40 mg/dL (2.5-4.5) 08/09/21 05:06 Magnesium 1.80 mg/dL (1.7-2.3) 08/08/21 01:28 Urine Creatinine 118.2 mg/dL (0.1-20.0) H 08/09/21 03:01 Urine Total Protein 33 mg/dL (5-11.8) H 08/09/21 03:01 Medications & Allergies - Medications Allergies/Adverse Reactions: Allergies oxycodone [From OxyContin] Allergy (Severe, Verified 08/08/21 12:12) Anaphylaxis Home Medications: Home Medications Medication Instructions Recorded Confirmed Last Taken Type Atorvastatin [Lipitor] 80 mg PO QDAY 08/09/21 08/09/21 Unknown History Bupropion HCl [Wellbutrin XL] 300 mg PO QDAY 08/09/21 08/09/21 Unknown History Duloxetine HCl 60 mg PO QAM 08/09/21 08/09/21 Unknown History Metformin HCl [metFORMIN] 1,000 mg PO BID 08/09/21 08/09/21 Unknown History clonazePAM [Klonopin] 1 mg PO BID PRN 08/09/21 08/09/21 Unknown History dilTIAZem HCL [Tiadylt ER] 120 mg PO BID 08/09/21 08/09/21 Unknown History AtorvaSTATin [Lipitor] 20 mg PO QHS tablet 08/11/21 Unknown Rx atenoloL [Tenormin] 50 mg PO BID tablet 08/11/21 Unknown Rx buPROPion SR [Wellbutrin SR] 100 mg PO BID tablet 08/11/21 Unknown Rx clonazePAM [KlonoPIN] 0.5 mg PO Q8H PRN tablet 08/11/21 Unknown Rx dilTIAZem [Cardizem] 120 mg PO BID tablet 08/11/21 Unknown Rx levoFLOXacin [Levaquin TAB] 500 mg PO QDAY 7 Days #7 tablet 08/11/21 Unknown Rx lisinopriL [Zestril TAB] 5 mg PO QDAY tablet 08/11/21 Unknown Rx sotaloL [Betapace] 180 mg PO Q12HR tablet 08/11/21 Unknown Rx Active Medications: Generic Name Dose Route Start Last Admin Trade Name Freq PRN Reason Stop Dose Admin Acetaminophen 650 mg 08/08/21 11:47 Acetaminophen 325 Mg Tab PO Q4H PRN Pain MILD(1-3)/Fever >100.5/[facility]ENSON Atenolol 50 mg 08/08/21 22:00 08/10/21 22:10 Atenolol 50 Mg Tab PO Not Given BID IVET Atorvastatin Calcium 20 mg 08/08/21 22:00 08/10/21 22:10 Atorvastatin 20 Mg Tab PO 20 mg QHS IVET Administration Bupropion HCl 100 mg 08/08/21 13:00 08/10/21 22:08 Bupropion Sr 100 Mg Tab PO 100 mg BID IVET Administration Clonazepam 0.5 mg 08/08/21 12:00 Clonazepam 0.5 Mg Tab PO Q8H PRN Anxiety Dextrose 50 ml 08/08/21 11:47 Dextrose 50% In Water (25gm) 50 Ml Syringe IV Q30MIN PRN Hypoglycemia Protocol Diltiazem HCl 120 mg 08/09/21 10:00 08/10/21 22:09 Diltiazem 60 Mg Tab PO Not Given BID IVET Diphenoxylate HCl/Atropine 1 tab 08/08/21 17:57 08/09/21 05:11 Diphenoxylate/Atropine Tab PO 1 tab Q6H PRN Administration Diarrhea Duloxetine HCl 20 mg 08/09/21 10:00 08/10/21 18:34 Duloxetine 20 Mg Cap PO Not Given QDAY IVET Enoxaparin Sodium 40 mg 08/09/21 11:00 08/10/21 11:45 Enoxaparin 40 Mg/0.4 Ml Inj SUB-Q 40 mg QDAY@1000 IVET Administration Famotidine 10 mg 08/10/21 22:00 08/10/21 22:08 Famotidine 10 Mg Tab PO 10 mg Q12HR IVET Administration Sodium Chloride 1,000 mls @ 75 mls/hr 08/08/21 09:00 08/11/21 07:13 Nacl 0.9% 1000 Ml IV 75 mls/hr DIRECT IVET Administration Ceftriaxone Sodium 2 gm in 100 mls @ 200 mls/hr 08/09/21 11:00 08/10/21 11:46 Rocephin/Ns 2 Gm/100 Ml IV 08/15/21 11:29 200 mls/hr Q24H IVET Administration Protocol Insulin Human Lispro 0 unit 08/08/21 16:30 08/10/21 22:09 Insulin Lispro 100 Unit/Ml SUB-Q 2 unit ACHS IVET Administration Protocol Lisinopril 5 mg 08/09/21 10:00 08/10/21 11:46 Lisinopril 5 Mg Tab PO 5 mg QDAY IVET Administration Morphine Sulfate 2 mg 08/08/21 11:47 Morphine 2 Mg/1 Ml Inj IV Q4H PRN Pain, Moderate (4-6) Ondansetron HCl 4 mg 08/08/21 11:47 Ondansetron 4 Mg/2 Ml Inj IV Q8H PRN Nausea And Vomiting Oxycodone/Acetaminophen 1 tab 08/08/21 11:47 Oxycodone /Acetaminophen 5-325mg Tab PO Q6H PRN Pain, Moderate (4-6) Sodium Chloride 10 ml 08/08/21 06:38 Sodium Chloride 0.9% 10 Ml Flush Syringe IV PRN PRN LINE FLUSH Sodium Chloride 10 ml 08/08/21 13:00 08/10/21 22:10 Sodium Chloride 0.9% 10 Ml Flush Syringe IV 10 ml BID IVET Administration Sotalol HCl 180 mg 08/08/21 16:00 08/10/21 22:09 Sotalol 80 Mg Tab PO Not Given Q12HR IVET
--- NOTE | 2021-08-11 08:48 | Discharge Summary ---
Providers - Providers Date of Admission: 08/08/21 06:38 Date of discharge: 08/11/21 Attending physician: BHAVIN WADE 08/08/21 05:46 Consult to Physician [CONS] Routine Comment: ROD Marte spoke with Dr. Crisostomo @ [id number] Consulting Provider: SUZE CRISOSTOMO Physician Instructions: Reason For Exam: renal cell carcinoma 08/08/21 06:18 Consult to Physician [CONS] Routine Comment: Consulting Provider: PRICILA PLATA Physician Instructions: Reason For Exam: renal cell carcinoma 08/08/21 11:47 Consult to Physician [CONS] Routine Comment: Consulting Provider: LEO HICKMAN Physician Instructions: a fib 3 av jesica agents Reason For Exam: a fib 08/10/21 09:36 Consult to Physician [CONS] Routine Comment: Consulting Provider: LORI PASCUAL Physician Instructions: Reason For Exam: Pyelonephritis Primary care physician: ALYCIA TOWNSEND Hospitalization Reason for admission: Pyelonephritis Condition: Serious Hospital course: 65-year-old female with history of diabetes mellitus, atrial fibrillation, diverticulosis, chronic back pain, left femur fracture, colon mass status post resection, admitted on 08/08/2021 secondary to 4-week history of left sided abdominal pain, poor appetite and diarrhea. Patient had colonoscopy 3 years ago which was benign. On arrival, temperature 97.9, HR 57, RR 18, O2 sat 98, BP 110/64. Initial WBC 11.7. AST 58, ALT 64. Urinalysis with 182 WBCs, large leukocyte esterase. Abdominal CTA shows abnormal left kidney with a masslike of 5 cm with mild left hydroureteronephrosis. Renal ultrasound with a hypoechoic mass of the left kidney 4.6 cm. The patient was admitted with diagnosis of sepsis, A. fib with RVR, UTI, transaminitis, morbid obesity and renal mass. The patient was seen by urology, cardiology and ID in consultation. Urine culture revealed mixed bacteria. Patient also had abdominal CTA which revealed abnormal left kidney with a masslike of 5 cm with mild left hydroureteronephrosis. Renal ultrasound with a hypoechoic mass of the left kidney 4.6 cm. Urology felt the differential diagnosis may be infected cyst, acquired cyst, tumor. Urology recommends repeat CT as outpatient once infection has resolved. Patient should follow-up with urology as an outpatient in the next 1 to 2 weeks. ID felt patient could discharge home with Levaquin until 08/15. Cardiology saw the patient in consultation and recommended continuation of home medications. EKG on this hospitalization showed no significant changes from previous EKGs. Dedicated discharge time 35 minutes Disposition: 01 HOME / SELF CARE / HOMELESS Final Discharge Diagnosis (Prints w/discharge instructions): sepsis, pyelonephritis, A. fib with RVR, UTI, transaminitis, morbid obesity and renal mass. Core Measure Documentation - Palliative Care Palliative Care/ Comfort Measures: Not Applicable - Core Measures Any of the following diagnoses?: none Exam - Constitutional Vitals: Temp Pulse Resp BP Pulse Ox 97.6 F 65 20 139/70 97 08/11/21 07:00 08/11/21 07:00 08/11/21 07:00 08/11/21 07:00 08/11/21 07:00 General appearance: Present: no acute distress, well-nourished - EENT Eyes: Present: PERRL ENT: hearing intact, clear oral mucosa - Neck Neck: Present: supple, normal ROM - Respiratory Respiratory effort: normal Respiratory: bilateral: CTA - Cardiovascular Heart Sounds: Present: S1 & S2. Absent: rub, click - Extremities Extremities: pulses symmetrical, No edema Peripheral Pulses: within normal limits - Abdominal General gastrointestinal: Present: soft, non-tender, non-distended, normal bowel sounds Female genitourinary: Present: normal - Integumentary Integumentary: Present: clear, warm, dry - Musculoskeletal Musculoskeletal: gait normal, strength equal bilaterally - Psychiatric Psychiatric: appropriate mood/affect, intact judgment & insight - Neurologic Neurologic: CNII-XII intact, moves all extremities Plan Activity: advance as tolerated Weight Bearing Status: Weight Bear as Tolerated Diet: regular Follow up with: ALYCIA TOWNSEND PA [Primary Care Provider] - 3-5 Days PRICILA PLATA MD [Staff Physician] - 7 Days LORI PASCUAL MD [Staff Physician] - 7 Days
[2021-08-11] MEDS: INSULIN LISPRO 100 UNIT/ML SUB-Q SCH ×3 (08:57→17:56)
[2021-08-11] MEDS: cefTRIAXone/NS 2 GM/100 ML 2 GM/100 ML BAG IV SCH (11:00)
[2021-08-11] MEDS: buPROPion SR 100 MG TAB PO SCH (11:03)
[2021-08-11] MEDS: FAMOTIDINE 10 MG TAB PO SCH (11:05)
[2021-08-11] MEDS: ENOXAPARIN 40 MG/0.4 ML INJ SUB-Q SCH (11:05)
[2021-08-11] MEDS: DULoxetine 20 MG CAP PO SCH (11:05)
[2021-08-11] MEDS: LISINOPRIL 5 MG TAB PO SCH (11:05)
[2021-08-11] MEDS: atenoloL 50 MG TAB PO SCH (11:06)
[2021-08-11 17:40] VITALS: BP 136/68
[2021-08-11] MEDS: dilTIAZem 60 MG TAB PO SCH (17:58)
== END 2021-08-11 21:00 | disposition home or self-care (01) | DRG 872 ==
LOC: ED 19:40 → 4A 08-08 06:38
PROVIDERS: ADMIT Internal Medicine Geriatric Medicine; ATTEND Hospitalist
DX: A41.9 Sepsis, unspecified organism (principal); N17.9 Acute kidney failure, unspecified; Z68.41 Body mass index [BMI] 40.0-44.9, adult; N13.6 Pyonephrosis; I48.20 Chronic atrial fibrillation, unspecified; E66.01 Morbid (severe) obesity due to excess calories; Z88.6 Allergy status to analgesic agent; E11.9 Type 2 diabetes mellitus without complications; E78.5 Hyperlipidemia, unspecified; E86.0 Dehydration; Z82.49 Family history of ischemic heart disease and other diseases of the circulatory system; Z79.84 Long term (current) use of oral hypoglycemic drugs; Z79.899 Other long term (current) drug therapy; K52.9 Noninfective gastroenteritis and colitis, unspecified; F32.9 Major depressive disorder, single episode, unspecified; N28.89 Other specified disorders of kidney and ureter; G89.29 Other chronic pain; M54.9 Dorsalgia, unspecified
CPT/HCPCS: 36415; 74174; 76770; 80048; 80053; 81001; 82140; 82570; 82962; 83690; 83735; 84100; 84156; 85025; 85027; 85610; 85730; 87086; 93005; G0378; A9270-GY; J0696; J1650; J1815; J2185; J3370; J7030; J7040; Q9967

== ENCOUNTER 2022-01-01 15:01 | Emergency (ER) | payer MEDICARE ==
--- NOTE | 2022-01-01 16:32 | Event Note ---
ED Screening Note ED Screening Note: Patient present to Ed from the PCP with recurrent kidney infection .Patient state doctor state unable to take any oral antibotics.Patient state that doctor office fax information to ER. This initial assessment/diagnostic orders/clinical plan/treatment(s) is/are subject to change based on patients health status, clinical progression and re- assessment by fellow clinical providers in the ED. Further treatment and workup at subsequent clinical providers discretion. Patient/guardian urged not to elope from the ED as their condition may be serious if not clinically assessed and managed. Initial orders include: Labs
[2022-01-01 17:15] LABS: Basophils % (Auto) 0.4 % (0.0-1.8); Eosinophils # (Auto) 0.1 K/mm3 (0.0-0.4); Eosinophils % (Auto) 1.4 % (0.0-4.3); Hematocrit 41.1 % (30.3-42.9); Hemoglobin 13.3 gm/dl (10.1-14.3); Lymphocytes % (Auto) 19.1 % (13.4-35.0); Mean Corpuscular HGB Conc 32 % (30-34); Mean Corpuscular Volume 89 fl (79-97); Monocytes # (Auto) 0.7 K/mm3 (0.0-0.8); Monocytes % (Auto) 6.4 % (0.0-7.3); Platelet Count 248 K/mm3 (140-440); Red Blood Count 4.64 M/mm3 (3.65-5.03); Red Cell Distribution Width 14.8 % (13.2-15.2)
[2022-01-01 17:35] LABS: Albumin 4.1 g/dL (3.9-5); Calcium 9.4 mg/dL (8.4-10.2)
[2022-01-01 18:53] LABS: Bilirubin,Urine NEG (Negative); Blood,Urine SM (Negative); Color,Urine Yellow (Yellow); Urobilinogen,Urine < 2.0 mg/dL (<2.0)
[2022-01-01 19:03] LABS: Bacteria,Urine 2+ /HPF (Negative); Mucus,Urine Few /HPF
[2022-01-01] MEDS ORDERED: cefTRIAXone/NS 1 GM/50 ML 1 GM/50 ML BAG IV ONE ×2 (19:28→23:10)
[2022-01-01] MEDS ORDERED: SODIUM CHLORIDE 0.9% 1000 ML 1,000 ML IV ONE (19:28)
--- NOTE | 2022-01-01 19:45 | Emergency Department Report ---
ED General Adult HPI - General Chief complaint: Urogenital-Female Stated complaint: BLADDER INFECTION Time Seen by Provider: 01/01/22 18:14 Source: patient Mode of arrival: Ambulatory Limitations: No Limitations - History of Present Illness Initial comments: Patient is 66 years old female with history of diabetes well controlled, atrial fibrillation and recurrent UTI. Patient presented to the ER after she was seen by her primary care physician for IV antibiotic for UTI. Patient stated that she has been tried with oral medication with no improvement. Patient stated that she does not have any symptoms. She denied any urinary frequency or dysuria. She also denied fever or chills. She also denied any nausea or vomiting. - Related Data Home Medications Medication Instructions Recorded Confirmed Last Taken Atorvastatin [Lipitor] 80 mg PO QDAY 08/09/21 08/09/21 Unknown Bupropion HCl [Wellbutrin XL] 300 mg PO QDAY 08/09/21 08/09/21 Unknown Duloxetine HCl 60 mg PO QAM 08/09/21 08/09/21 Unknown Metformin HCl [metFORMIN] 1,000 mg PO BID 08/09/21 08/09/21 Unknown clonazePAM [Klonopin] 1 mg PO BID PRN 08/09/21 08/09/21 Unknown dilTIAZem HCL [Tiadylt ER] 120 mg PO BID 08/09/21 08/09/21 Unknown Previous Rx's Medication Instructions Recorded Last Taken Type AtorvaSTATin [Lipitor] 20 mg PO QHS tablet 08/11/21 Unknown Rx atenoloL [Tenormin] 50 mg PO BID tablet 08/11/21 Unknown Rx buPROPion SR [Wellbutrin SR] 100 mg PO BID tablet 08/11/21 Unknown Rx clonazePAM [KlonoPIN] 0.5 mg PO Q8H PRN tablet 08/11/21 Unknown Rx dilTIAZem [Cardizem] 120 mg PO BID tablet 08/11/21 Unknown Rx levoFLOXacin [Levaquin TAB] 500 mg PO QDAY 7 Days #7 tablet 08/11/21 Unknown Rx lisinopriL [Zestril TAB] 5 mg PO QDAY tablet 08/11/21 Unknown Rx sotaloL [Betapace] 180 mg PO Q12HR tablet 08/11/21 Unknown Rx Allergies Allergy/AdvReac Type Severity Reaction Status Date / Time oxycodone [From OxyContin] Allergy Severe Anaphylaxis Verified 01/01/22 16:18 ED Review of Systems ROS: Stated complaint: BLADDER INFECTION Other details as noted in HPI Comment: All other systems reviewed and negative Constitutional: denies: chills, fever Respiratory: denies: cough, shortness of breath, SOB with exertion, SOB at rest Cardiovascular: denies: chest pain, palpitations Gastrointestinal: denies: abdominal pain, nausea, vomiting, diarrhea, constipation, hematemesis, hematochezia Musculoskeletal: denies: back pain Neurological: denies: headache, weakness, numbness, paresthesias, confusion ED Past Medical Hx - Past Medical History Previous Medical History?: Yes Hx Hypertension: Yes Hx Diabetes: Yes Hx Arthritis: Yes Hx HIV: No - Surgical History Past Surgical History?: No - Social History Smoking Status: Never Smoker - Medications Home Medications: Home Medications Medication Instructions Recorded Confirmed Last Taken Type Atorvastatin [Lipitor] 80 mg PO QDAY 08/09/21 08/09/21 Unknown History Bupropion HCl [Wellbutrin XL] 300 mg PO QDAY 08/09/21 08/09/21 Unknown History Duloxetine HCl 60 mg PO QAM 08/09/21 08/09/21 Unknown History Metformin HCl [metFORMIN] 1,000 mg PO BID 08/09/21 08/09/21 Unknown History clonazePAM [Klonopin] 1 mg PO BID PRN 08/09/21 08/09/21 Unknown History dilTIAZem HCL [Tiadylt ER] 120 mg PO BID 08/09/21 08/09/21 Unknown History AtorvaSTATin [Lipitor] 20 mg PO QHS tablet 08/11/21 Unknown Rx atenoloL [Tenormin] 50 mg PO BID tablet 08/11/21 Unknown Rx buPROPion SR [Wellbutrin SR] 100 mg PO BID tablet 08/11/21 Unknown Rx clonazePAM [KlonoPIN] 0.5 mg PO Q8H PRN tablet 08/11/21 Unknown Rx dilTIAZem [Cardizem] 120 mg PO BID tablet 08/11/21 Unknown Rx levoFLOXacin [Levaquin TAB] 500 mg PO QDAY 7 Days #7 tablet 08/11/21 Unknown Rx lisinopriL [Zestril TAB] 5 mg PO QDAY tablet 08/11/21 Unknown Rx sotaloL [Betapace] 180 mg PO Q12HR tablet 08/11/21 Unknown Rx ED Physical Exam - General Limitations: No Limitations General appearance: alert, in no apparent distress - Head Head exam: Present: atraumatic, normocephalic, normal inspection - Eye Eye exam: Present: normal appearance, PERRL - ENT ENT exam: Present: normal exam, normal orophraynx, mucous membranes moist - Neck Neck exam: Present: normal inspection, full ROM. Absent: tenderness, meningismus - Respiratory Respiratory exam: Present: normal lung sounds bilaterally - Cardiovascular Cardiovascular Exam: Present: regular rate, normal rhythm, normal heart sounds - GI/Abdominal GI/Abdominal exam: Present: soft, normal bowel sounds. Absent: distended, tenderness, guarding, rebound, rigid, organomegaly, mass, bruit, pulsatile mass, hernia - Extremities Exam Extremities exam: Present: normal inspection, full ROM. Absent: tenderness, normal capillary refill - Back Exam Back exam: Present: normal inspection, full ROM. Absent: CVA tenderness (R), CVA tenderness (L) - Neurological Exam Neurological exam: Present: alert, oriented X3, CN II-XII intact - Psychiatric Psychiatric exam: Present: normal mood - Skin Skin exam: Present: warm, intact, normal color ED Course Vital Signs 01/01/22 16:16 Temperature 98.0 F Pulse Rate 66 Respiratory 18 Rate Blood Pressure 167/78 O2 Sat by Pulse 96 Oximetry ED Medical Decision Making - Lab Data Result diagrams: 01/01/22 16:43 01/01/22 16:43 - Medical Decision Making Patient is 66 years old female with history of diabetes well controlled, atrial fibrillation and recurrent UTI. Patient presented to the ER after she was seen by her primary care physician for IV antibiotic for UTI. Patient stated that she has been tried with oral medication with no improvement. Patient stated that she does not have any symptoms. She denied any urinary frequency or dysuria. She also denied fever or chills. She also denied any nausea or vomiting. Patient remained stable in the ER and asymptomatic. Labs reviewed and is unremarkable including a normal kidney function. Urine is positive for UTI. Patient received Rocephin 1 g IV. At this moment patient does not meet inpatient criteria and will need to follow-up with her primary care physician for arrangement of outpatient IV antibiotic. Patient advised to return to the ER if she develop any new symptoms. Critical care attestation.: If time is entered above; I have spent that time in minutes in the direct care of this critically ill patient, excluding procedure time. ED Disposition Clinical Impression: UTI (urinary tract infection) Disposition: 01 HOME / SELF CARE / HOMELESS Is pt being admited?: No Condition: Stable Instructions: Urinary Tract Infection, Adult Referrals: PRIMARY CARE, [Referring] - 3-5 Days
[2022-01-02 01:22] VITALS: BP 132/70
== END 2022-01-02 01:20 | disposition home or self-care (01) ==
LOC: ED 15:01
DX: N39.0 Urinary tract infection, site not specified (principal); E11.9 Type 2 diabetes mellitus without complications; I10 Essential (primary) hypertension; M19.90 Unspecified osteoarthritis, unspecified site; Z88.5 Allergy status to narcotic agent; Z79.899 Other long term (current) drug therapy
CPT/HCPCS: 36415; 80053; 81001; 85025; 96365; 99283; J0696; J7030; Q0162